=== PATIENT | female | born 1940 | race Caucasian/White ===

== ENCOUNTER 2021-07-21 11:24 | Emergency (ER) | payer MEDICARE ==
[~2021-07-21] VITALS: Ht 172.7 cm; Wt 86.4 kg
--- NOTE | 2021-07-21 11:43 | PHYS DOC ---
General Adult HPI: HPI: Patient is a 81 year old female who presents with lower scalp pain, lower neck pain, thoracic back pain after a mechanical fall, which occurred last night around 11:30 PM. She has a history of multiple falls. She normally ambulates with a walker. She reports that she got up to go to the bathroom, her was trying to help her ambulate and sit on the toilet, but she said that her knees "gave out" and she fell to the floor. Her helped her to the floor. She thinks she hit the back of her head against the toilet seat. She hit her lower neck and thoracic back on the toilet seat as well. She denies loss of consciousness. She denies any premonitory symptoms. She denies dizziness, kelby phoresis, palpitations, chest pain, dyspnea, abdominal pain, nausea or vomiting. Denies numbness tingling motor weakness. She went to urgent care this morning, they told her to come to the ER. She also reports several weeks of urinary urgency and frequency, concern for urinary tract infection. She had meant to make an appointment with her primary care physician for this, but she was unable to do so. No acute changes in urinary symptoms today. She has some mild chronic overflow incontinence, unchanged today. She denies abdominal pain, motor weakness, denies paralysis. Denies stool incontinence. Denies fevers or chills. Review of Systems: Review of Systems: Constitutional: Denies fever or chills. [] Eyes: Denies vision loss. HENT: Denies nasal congestion or sore throat. [] Respiratory: Denies cough or shortness of breath. [] Cardiovascular: Denies chest pain or edema. [] GI: Denies abdominal pain, nausea, vomiting, diarrhea, constipation. : Urinary urgency, frequency and chronic overflow incontinence. Denies gross hematuria. Musculoskeletal: Reports neck pain and upper back pain. Denies joint pain or swelling. Integument: Denies rash. [] Neurologic: Denies headache, focal weakness or sensory changes. [] Psychiatric: Denies depression or anxiety. [] Heart Score: C/O Chest Pain: No Risk Factors: Risk Factors: DM, Current or recent (<one month) smoker, HTN, HLP, family history of CAD, obesity. Risk Scores: Score 0 - 3: 2.5% MACE over next 6 weeks - Discharge Home Score 4 - 6: 20.3% MACE over next 6 weeks - Admit for Clinical Observation Score 7 - 10: 72.7% MACE over next 6 weeks - Early Invasive Strategies Physical Exam: PE: Constitutional: Well developed, well nourished, no acute distress, non-toxic appearance. [] HENT: Normocephalic, atraumatic, bilateral external ears normal, oropharynx is patent and clear. Mucous membranes are moist. No otorrhea. No rhinorrhea. No epistaxis. Eyes: PERRL, EOMI, conjunctiva normal, no discharge. [] Neck: Normal range of motion, trachea is midline. Diffuse paraspinal and midline lower C-spine tenderness. No palpable step-offs or deformity. Cardiovascular:Heart rate regular rhythm, +2 radial and PT pulses bilaterally. Lungs & Thorax: Bilateral breath sounds clear to auscultation [] Abdomen: Soft obese, nondistended, nontender to palpation. Skin: Warm, dry, no erythema, no rash. [] Back: No deformity. Diffuse midline and paraspinal tenderness of the entire T- spine. No L-spine tenderness. No palpable crepitus or step-offs. Slightly limited range of motion with flexion, secondary to pain. Extremities: No limb deformity. Pelvis is stable. No calf tenderness. Full painless range of motion of bilateral hips, knees, ankles and feet. No foot d rop. Neurologic: Alert and oriented X 3, normal motor function, normal sensory function, no focal deficits noted. 5 out of 5 motor strength all 4 extremities. No facial asymmetry. Sensation is grossly intact. DTRs 2+ out of 4 bilateral lower extremities. No foot drop. No limb ataxia. Psychologic: Affect normal, judgement normal, mood normal. [] EKG: EKG: [] Radiology/Procedures: Radiology/Procedures: IMAGING REPORT Signed PATIENT: IRENE KENNEDY ACCOUNT: [id number] : 1940 LOCATION: ER AGE: 81 SEX: F EXAM STATUS: PRE ER ORD. PHYSICIAN: COLBY WHITESIDE DO REASON: fall PROCEDURE: CT HEAD AND CERVICAL SPINE WO PQRS Compliance Statement: One or more of the following individualized dose reduction techniques were util ized for this examination: 1. Automated exposure control 2. Adjustment of the mA and/or kV according to patient size 3. Use of iterative reconstruction technique CT head and cervical spine without contrast 07/21/2021 12:[address] thoracic and lumbar spine without contrast INDICATION: Fall COMPARISON: None available TECHNIQUE: Multiple axial CT images of the head were obtained from skull base through the vertex without intravenous contrast. Multiple axial CT images of the cervical, thoracic and lumbar spine were obtained without intravenous contrast. Coronal and sagittal reformats are provided. FINDINGS: Head: Ventricles, sulci and basal cisterns are prominent compatible with mild generalized cerebral volume loss. Low-attenuation in the periventricular white matter is suggestive of chronic small vessel ischemic changes. There is a dilated perivascular space in the inferior left basal ganglia. There is no hydrocephalus. Alva-white matter differentiation is normal. There is no acute intracranial hemorrhage. There is no mass, mass effect or midline shift. Posterior fossa is normal in appearance. Visualized portions of the orbits are normal. Moderate mucosal thickening of the right maxillary sinus. Minor mucosal thickening of the left maxillary sinus with small mucus retention cyst measuring 1.0 cm.. Mastoid air cells are well aerated. Scalp and calvaria are normal. Cervical spine: Alignment of the cervical spine is normal. Skull base is intact. Craniocervical junction is normal in appearance. Atlantoaxial articulation is normal. Vertebral body heights are maintained without evidence for acute fracture. At C2-C3, there is a posterior disc osteophyte complex with calcified central disc protrusion. Moderate left and moderate facet arthropathy without significant neuroforaminal stenosis. There may be mild osseous foraminal canal stenosis. At C3-C4, there is mild disc bulge with central disc protrusion. Moderate facet arthropathy and mild uncovertebral joint disease resulting in mild bilateral neural foraminal stenosis. At C4-C5, there is a posterior disc osteophyte complex with moderate left and moderate facet arthropathy and mild uncovertebral joint disease resulting in mild left neuroforaminal stenosis and mild osseous spinal canal stenosis. At C5-C6, there is a posterior discussed by complex with moderate to severe left and moderate right facet arthropathy and moderate uncovertebral joint disease resulting in severe right and moderate left neuroforaminal stenosis and mild to moderate osseous spinal canal stenosis. At C6-C7, there is a posterior disc osteophyte complex with mild to moderate facet arthropathy and mild uncovertebral joint disease. There may be a right central disc protrusion. Moderate right and mild left neuroforaminal stenosis. Mild spin al canal stenosis. There is no prevertebral soft tissue swelling. Thyroidectomy changes are present. Visualized portions of the lung apices are normal without evidence for suspicious pulmonary nodule or infiltrate. Thoracic spine: Alignment of the thoracic spine is normal. Vertebral body heights are maintained. At T1-T2, there is a calcified central disc protrusion without signi ficant neuroforaminal or spinal canal stenosis. At T5-T6, there is a calcified central disc protrusion without significant neuroforaminal or spinal canal stenosis. Mild left facet arthropathy. At T9-T10, there is a right central disc protrusion without significant neuroforaminal or spinal canal stenosis. No acute fracture. Posterior elements are intact. No paraspinal soft tissue abnormality. Thoracic aorta is normal in course and caliber with moderate calcified atheromatous plaque. Lungs are clear. Mild bronchial wall thickening compatible with nonspecific bronchitis. Lumbar spine: S-shaped curvature of the lumbar spine with apex dextrocurvature at L1-L2 and apex levocurvature at L3-L4. Sagittal alignment appears intact. There is moderate to advanced disc height loss at L4-L5. Mild disc height loss at L2-L3 and L3-L4 with vacuum disc phenomena. Moderate to advanced anterior marginal osteophytosis. At L1-L2, there is a posterior disc osteophyte complex. Mild facet arthropathy. No neuroforaminal or spinal canal stenosis. At L2-L3, there is a posterior disc osteophyte complex. Mild facet arthropathy with mild bilateral neuroforaminal stenosis, left greater than right. Mild spinal canal stenosis. At L3-L4, there is a circumferential disc bulge. Mild facet arthro alfonso with ligamentum flavum infolding. Moderate bilateral neuroforaminal stenosis. Mild spinal canal stenosis. At L4-L5, there is a posterior disc osteophyte complex with calcified central disc protrusion. Moderate facet arthropathy ligamentum flavum infolding. Severe right and moderate left neuroforaminal stenosis. Mild to moderate spinal canal stenosis with narrowing of the left lateral recess. At L5-S1, there is a circumferential disc bulge asymmetric to the left. Moderate facet arthropathy. Moderate to severe left neuroforaminal stenosis. No spinal canal stenosis. Sacrum and coccyx are intact as visualized. Sacroiliac joints are well aligned. IMPRESSION: 1. No acute intracranial hemorrhage. Mild generalized cerebral volume loss. Low- attenuation in the periventricular white matter is suggestive of chronic small vessel ischemic changes. 2. No acute fracture of the cervical, thoracic and lumbar spine. 3. Mild cervical and thoracic and moderate lumbar spondylosis as detailed above. Electronically signed by: Raquel Garcia MD (07/21/2021 1:08 PM) [id number] DICTATED and SIGNED BY: RAQUEL GARCIA MD DATE: 07/21/21 [id number] Course & Med Decision Making: Course & Med Decision Making Pertinent Labs and Imaging studies reviewed. (See chart for details) IM morphine given for pain. First dose of p.o. Keflex given for urinary tract infection. I discussed the findings, differential diagnosis and plan of care with the patient. Imaging studies reveal no acute life-threatening process or acute fracture. She has a nonfocal neurologic exam. She feels comfortable going home. I recommend she utilize her walker for ambulation. No current indication for further imaging, invasive exams or admission at this time. She understands that urine culture is pending, and she should be notified of any need to change antibiotics based on this. Home care instructions are given. Return precautions are given. She is comfortable with the plan of care, she will follow-up with her primary care physician Luis Fernando Disclaimer: Luis Fernando Disclaimer: This electronic medical record was generated, in whole or in part, using a voice recognition dictation system. Departure Departure Impression: Primary Impression: Fall at home Additional Impressions: Neck pain Back pain Urinary tract infection Disposition: 01 HOME / SELF CARE / HOMELESS Condition: STABLE Patient Instructions: Fall Prevention and Home Safety, Urinary Tract Infection Additional Instructions: Take the full course of antibiotics. Return to the ER for new injury or trauma, more severe pain, abdominal pain, chest pain, shortness of breath, uncontrolled vomiting, dehydration, focal motor weakness or any other concerns. You may alternate ice and heat for pain. You may take the prescribed pain medicine as needed. If there is any need to change antibiotics based on your urine culture, you should be notified within about 48 hours. Please contact your primary care physician for follow-up. Scripts Cephalexin (KEFLEX) 500 Mg Capsule 1 CAP PO BID for 7 Days, #14 CAP Prov: COLBY WHITESIDE DO 07/21/21 Oxycodone/Apap 5-325 (PERCOCET 5-325 MG TABLET ) 1 Each Tablet 1 TAB PO PRN Q6HRS PRN for PAIN, #12 TAB pain Prov: COLBY WHITESIDE DO 07/21/21 COLBY WHITESIDE DO Jul 21, 2021 11:43
[2021-07-21] MEDS ORDERED: MORPHINE SULFATE 2 MG/ML INJ. IM ONE (12:00)
[2021-07-21 12:02] VITALS: BP 143/63
--- NOTE | 2021-07-21 13:10 | RAD ---
PQRS Compliance Statement: One or more of the following individualized dose reduction techniques were utilized for this examinat ion: 1. Automated exposure control 2. Adjustment of the mA and/or kV according to patient size 3. Use of iterative reconstruction technique CT head and cervical spine without contrast 07/21/2021 12:[address] thoracic and lumbar spine without contrast INDICATION: Fall COMPARISON: None available TECHNIQUE: Multiple axial CT images of the head were obtained from skull base through the vertex with out intravenous contrast. Multiple axial CT images of the cervical, thoracic and lumbar spine were o btained without intravenous contrast. Coronal and sagittal reformats are provided. FINDINGS: Head: Ventricles, sulci and basal cisterns are prominent compatible with mild generalized cerebral volume l oss. Low-attenuation in the periventricular white matter is suggestive of chronic small vessel ischem ic changes. There is a dilated perivascular space in the inferior left basal ganglia. There is no hyd rocephalus. Alva-white matter differentiation is normal. There is no acute intracranial hemorrhage. T here is no mass, mass effect or midline shift. Posterior fossa is normal in appearance. Visualized portions of the orbits are normal. Moderate mucosal thickening of the right maxillary sinu s. Minor mucosal thickening of the left maxillary sinus with small mucus retention cyst measuring 1.0 cm.. Mastoid air cells are well aerated. Scalp and calvaria are normal. Cervical spine: Alignment of the cervical spine is normal. Skull base is intact. Craniocervical junction is normal in appearance. Atlantoaxial articulation is normal. Vertebral body heights are maintained without evidence for acute fracture. At C2-C3, there is a posterior disc osteophyte complex with calcified central disc protrusion. Modera te left and moderate facet arthropathy without significant neuroforaminal stenosis. There may be mild osseous foraminal canal stenosis. At C3-C4, there is mild disc bulge with central disc protrusion. M oderate facet arthropathy and mild uncovertebral joint disease resulting in mild bilateral neural for aminal stenosis. At C4-C5, there is a posterior disc osteophyte complex with moderate left and modera te facet arthropathy and mild uncovertebral joint disease resulting in mild left neuroforaminal steno sis and mild osseous spinal canal stenosis. At C5-C6, there is a posterior discussed by complex with moderate to severe left and moderate right facet arthropathy and moderate uncovertebral joint disease resulting in severe right and moderate left neuroforaminal stenosis and mild to moderate osseous spi nal canal stenosis. At C6-C7, there is a posterior disc osteophyte complex with mild to moderate face t arthropathy and mild uncovertebral joint disease. There may be a right central disc protrusion. Mod erate right and mild left neuroforaminal stenosis. Mild spinal canal stenosis. There is no prevertebral soft tissue swelling. Thyroidectomy changes are present. Visualized portions of the lung apices are normal without evidence for suspicious pulmonary nodule or infiltrate. Thoracic spine: Alignment of the thoracic spine is normal. Vertebral body heights are maintained. At T1-T2, there is a calcified central disc protrusion without significant neuroforaminal or spinal canal stenosis. At T 5-T6, there is a calcified central disc protrusion without significant neuroforaminal or spinal canal stenosis. Mild left facet arthropathy. At T9-T10, there is a right central disc protrusion without s ignificant neuroforaminal or spinal canal stenosis. No acute fracture. Posterior elements are intact. No paraspinal soft tissue abnormality. Thoracic aorta is normal in course and caliber with moderate calcified atheromatous plaque. Lungs are clear. Mild bronchial wall thickening compatible with nonspe cific bronchitis. Lumbar spine: S-shaped curvature of the lumbar spine with apex dextrocurvature at L1-L2 and apex levocurvature at L 3-L4. Sagittal alignment appears intact. There is moderate to advanced disc height loss at L4-L5. Mil d disc height loss at L2-L3 and L3-L4 with vacuum disc phenomena. Moderate to advanced anterior mirna nal osteophytosis. At L1-L2, there is a posterior disc osteophyte complex. Mild facet arthropathy. No neuroforaminal or spinal canal stenosis. At L2-L3, there is a posterior disc osteophyte complex. Mil d facet arthropathy with mild bilateral neuroforaminal stenosis, left greater than right. Mild spinal canal stenosis. At L3-L4, there is a circumferential disc bulge. Mild facet arthropathy with ligamen james flavum infolding. Moderate bilateral neuroforaminal stenosis. Mild spinal canal stenosis. At L4-L 5, there is a posterior disc osteophyte complex with calcified central disc protrusion. Moderate face t arthropathy ligamentum flavum infolding. Severe right and moderate left neuroforaminal stenosis. Mi ld to moderate spinal canal stenosis with narrowing of the left lateral recess. At L5-S1, there is a circumferential disc bulge asymmetric to the left. Moderate facet arthropathy. Moderate to severe lef t neuroforaminal stenosis. No spinal canal stenosis. Sacrum and coccyx are intact as visualized. Sacr oiliac joints are well aligned. IMPRESSION: 1. No acute intracranial hemorrhage. Mild generalized cerebral volume loss. Low-attenuation in the pe riventricular white matter is suggestive of chronic small vessel ischemic changes. 2. No acute fracture of the cervical, thoracic and lumbar spine. 3. Mild cervical and thoracic and moderate lumbar spondylosis as detailed above. Electronically signed by: Kelsi Méndez MD (07/21/2021 1:08 PM) [id number]
[2021-07-21 14:30] LABS: BILIRUBIN,URINE NEGATIVE (NEG); CLARITY,URINE CLOUDY; COLOR,URINE YELLOW; NITRITE,URINE POSITIVE (NEG); PH,URINE 5.5 (<5.0-8.0); PROTEIN,URINE 30 mg/dL (NEG-TRACE)
[2021-07-21 14:42] LABS: BACTERIA,URINE MANY /HPF (0-FEW); WBC,URINE >40 /HPF (0-4)
[2021-07-21 14:43] LABS: RBC,URINE 0 /HPF (0-2)
[2021-07-21] MEDS ORDERED: CEPHALEXIN 250 MG CAPSULE. PO ONE (15:00)
[2021-07-21] MEDS ORDERED: CEPH500C PO (15:03)
[2021-07-21] MEDS ORDERED: OXYC1TAB15 PO (15:03)
== END 2021-07-21 15:12 | disposition home or self-care (01) ==
LOC: ER 11:24
DX: N39.0 Urinary tract infection, site not specified (principal); M54.6 Pain in thoracic spine; M54.2 Cervicalgia; G89.11 Acute pain due to trauma; W18.39XA Other fall on same level, initial encounter; Y93.89 Activity, other specified; Y99.8 Other external cause status; Y92.098 Other place in other non-institutional residence as the place of occurrence of the external cause
CPT/HCPCS: 70450; 72125; 72128; 72131; 81001; 87086; 96372; 99284; J2270

== ENCOUNTER 2021-10-27 05:02 | Inpatient (IN) | payer MEDICARE ==
[~2021-10-27] VITALS: Ht 172.7 cm; Wt 89.5 kg
[~2021-10-27 05:02] MED LIST: CEPH500C PO; OXYC1TAB15 PO
[2021-10-27 06:53] LABS: BASO % 1 % (0-3); EOS # 0.5 x10^3/uL (0.0-0.7); EOS % 5 % (0-3); HEMATOCRIT 24.5 % (36.0-47.0); HEMOGLOBIN 7.7 g/dL (12.0-15.5); LYMPH # 1.8 x10^3/uL (1.0-4.8); LYMPH % 20 % (24-48); MEAN CORPUSCULAR HEMOGLOBIN 32 pg (25-35); MEAN CORPUSCULAR HGB CONC 31 g/dL (31-37); MEAN CORPUSCULAR VOLUME 101 fL (79-100); MONO % 11 % (0-9); NEUT # 5.9 x10^3/uL (1.8-7.7); NEUT % 64 % (31-73); PLATELET COUNT 216 x10^3/uL (140-400); RED BLOOD COUNT 2.43 x10^6/uL (3.50-5.40); RED CELL DISTRIBUTION WIDTH 15.9 % (11.5-14.5); WHITE BLOOD COUNT 9.2 x10^3/uL (4.0-11.0)
[2021-10-27] MEDS ORDERED: cefTRIAXone IV Push 1 GM VIAL. IVP ONE (07:00)
[2021-10-27] MEDS ORDERED: IPRATRPIUM/ALBUTEROL 0.5/2.5MG 3 ML NEBU. NEB ONE (07:00)
[2021-10-27] MEDS ORDERED: ACETAMINOPHEN 500 MG TABLET PO ONE (07:00)
[2021-10-27] MEDS ORDERED: methylPREDNISolone SOD SUCC PF 125 MG/2 ML VIAL. IV ONE (07:00)
[2021-10-27] MEDS ORDERED: ALBUTEROL SULFATE 2.5 MG/3 ML NEBU. NEB ONE (07:00)
[2021-10-27 07:04] LABS: CALCIUM 8.2 mg/dL (8.5-10.1); POTASSIUM 3.7 mmol/L (3.5-5.1)
[2021-10-27 07:10] LABS: ALBUMIN 3.5 g/dL (3.4-5.0); ALBUMIN/GLOBULIN RATIO 1.2 (1.0-1.7); TOTAL BILIRUBIN 0.9 mg/dL (0.2-1.0); TOTAL PROTEIN 6.5 g/dL (6.4-8.2)
[2021-10-27 07:30] LABS: PROTHROMBIN TIME PATIENT 14.2 SEC (11.7-14.0)
--- NOTE | 2021-10-27 07:44 | RAD ---
AP portable chest radiograph 10/27/2021 Clinical History: Shortness of breath. An AP erect portable digital radiograph of the chest was obtained. Surgical clips overlie the inferior neck likely related to thyroidectomy. Monitoring device overlies the left mid chest. The cardiac silhouette is normal in size. The thoracic aorta is mildly tortuous. Atherosclerotic calcification of the thoracic aorta is seen. No acute pulmonary infiltrate is seen. N o pleural effusion or pneumothorax is noted. Degenerative changes are seen involving the thoracic spi ne. IMPRESSION: No acute abnormality is seen. Electronically signed by: Rogelio Hickman MD (10/27/2021 7:42 AM) [id number]
[2021-10-27 07:48] LABS: BASE EXCESS ABG -1 mmol/L (-3-3); HCO3 ABG 23 mmol/L (21-28); PCO2 ABG 37 mmHg (35-46); PO2 ABG 69 mmHg (65-108); SAT O2 ABG 92 % (92-99)
[2021-10-27 07:50] LABS: FIO2 ABG 21
[2021-10-27 08:00] LABS: INFLUENZA A PATIENT NEGATIVE (NEGATIVE); INFLUENZA B PATIENT NEGATIVE (NEGATIVE)
--- NOTE | 2021-10-27 09:57 | PHYS DOC ---
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 She presents for evaluation of several days of nasal congestion, rhinorrhea, dry cough and progressive shortness of breath. Associated nausea with occasional nonbloody vomiting. Associated occasional mild watery diarrhea. Patient is saturating at 86% on room air and is diffusely wheezing. She is able to speak comfortably in full sentences in a normal tone of voice. She denies associated fevers, hematemesis, hematochezia or melena, chest pain aside from with coughing, abdominal pain of any kind, flank pain, midline back pain, dysuria, hematuria, polyuria or oliguria. Patient is alert and pleasantly and appropriately interactive and in no acute distress with appropriate vital signs aside from hypoxia as noted above. Review of Systems Review of Systems A 12 point review of systems was completed and was negative except where noted in HPI above. Current Medications Current Medications Current Medications Medications (Trade) Dose Ordered Sig/Roscoe Start Time Stop Time Status Last Admin Dose Admin Acetaminophen (Tylenol) 1,000 mg 1X ONCE 10/27/21 07:00 10/27/21 07:01 DC 10/27/21 07:46 1,000 MG Albuterol Sulfate (Ventolin Neb Soln) 2.5 mg 1X ONCE 10/27/21 07:00 10/27/21 07:01 DC 10/27/21 07:40 2.5 MG Albuterol/ Ipratropium (Duoneb) 3 ml 1X ONCE 10/27/21 07:00 10/27/21 07:01 DC 10/27/21 07:40 3 ML Ceftriaxone Sodium (Rocephin) 1 gm 1X ONCE 10/27/21 07:00 10/27/21 07:01 DC 10/27/21 07:35 1 GM Methylprednisolone Sodium Succinate (SOLU-Medrol 125MG VIAL) 125 mg 1X ONCE 10/27/21 07:00 10/27/21 07:01 DC 10/27/21 07:33 125 MG Allergies Allergies Allergies Coded Allergies Type Severity Reaction Last Updated Verified Penicillins Allergy Intermediate Rash 07/21/21 Yes codeine Adverse Reaction Mild Nausea 10/27/21 Yes Physical Exam Physical Exam Elderly female appearing nontoxic and in no acute distress. Head is normocephalic and atraumatic. Neck is supple and nontender. Oropharynx is moist. Lungs with diminished breath sounds to all [place] and wheezes heard globally. No crackles or other adventitious sounds. There is a normal S1 and S2 without rubs or gallops and capillary refill is appropriate, less than 2 seconds globally. Abdomen is soft, nontender and nondistended. Skin is warm and dry without cyanosis, clubbing or edema. Psychiatrically, the patient demonstrates appropriate mood and affect and is alert. Evaluation of the extremities reveals BUEs and BLEs neurovascular intact distally with strength 5 out of 5, sensation intact light touch in all nerve distributions, radial, DP and PT pulses 2+ and equal bilaterally, capillary refill less than 2 seconds, hands and feet warm and well-perfused. No dependent peripheral edema distally. No calf tenderness or swelling bilaterally. Homans test is negative bilaterally. Current Patient Data Vital Signs Vital Signs Date Time Temp Pulse Resp B/P (MAP) Pulse Ox O2 Delivery O2 Flow Rate FiO2 10/27/21 09:10 98.3 102 19 145/63 (90) 94 Nasal Cannula 2.0 98.3 Lab Values Laboratory Tests Test 10/27/21 06:30 10/27/21 07:30 White Blood Count 9.2 x10^3/uL (4.0-11.0) Red Blood Count 2.43 x10^6/uL (3.50-5.40) L Hemoglobin 7.7 g/dL (12.0-15.5) L Hematocrit 24.5 % (36.0-47.0) L Mean Corpuscular Volume 101 fL (79-100) H Mean Corpuscular Hemoglobin 32 pg (25-35) Mean Corpuscular Hemoglobin Concent 31 g/dL (31-37) Red Cell Distribution Width 15.9 % (11.5-14.5) H Platelet Count 216 x10^3/uL (140-400) Neutrophils (%) (Auto) 64 % (31-73) Lymphocytes (%) (Auto) 20 % (24-48) L Monocytes (%) (Auto) 11 % (0-9) H Eosinophils (%) (Auto) 5 % (0-3) H Basophils (%) (Auto) 1 % (0-3) Neutrophils # (Auto) 5.9 x10^3/uL (1.8-7.7) Lymphocytes # (Auto) 1.8 x10^3/uL (1.0-4.8) Monocytes # (Auto) 1.0 x10^3/uL (0.0-1.1) Eosinophils # (Auto) 0.5 x10^3/uL (0.0-0.7) Basophils # (Auto) 0.0 x10^3/uL (0.0-0.2) Prothrombin Time 14.2 SEC (11.7-14.0) H Prothrombin Time INR 1.1 (0.8-1.1) Activated Partial Thromboplast Time 27 SEC (24-38) Sodium Level 144 mmol/L (136-145) Potassium Level 3.7 mmol/L (3.5-5.1) Chloride Level 104 mmol/L (98-107) Carbon Dioxide Level 28 mmol/L (21-32) Anion Gap 12 (6-14) Blood Urea Nitrogen 21 mg/dL (7-20) H Creatinine 2.0 mg/dL (0.6-1.0) H Estimated GFR (Cockcroft-Gault) 24.0 BUN/Creatinine Ratio 11 (6-20) Glucose Level 131 mg/dL (70-99) H Lactic Acid Level 1.7 mmol/L (0.4-2.0) Calcium Level 8.2 mg/dL (8.5-10.1) L Total Bilirubin 0.9 mg/dL (0.2-1.0) Aspartate Amino Transferase (AST) 8 U/L (15-37) L Alanine Aminotransferase (ALT) 17 U/L (14-59) Alkaline Phosphatase 43 U/L (46-116) L Troponin I High Sensitivity 171 ng/L (4-50) H YZ-Iqb-L-Type Natriuretic Peptide 575 pg/mL (0-449) H Total Protein 6.5 g/dL (6.4-8.2) Albumin 3.5 g/dL (3.4-5.0) Albumin/Globulin Ratio 1.2 (1.0-1.7) Procalcitonin 0.13 ng/mL (0.00-0.10) H O2 Saturation 92 % (92-99) Arterial Blood pH 7.41 (7.35-7.45) Arterial Blood pCO2 at Patient Temp 37 mmHg (35-46) Arterial Blood pO2 at Patient Temp 69 mmHg (65-108) Arterial Blood HCO3 23 mmol/L (21-28) Arterial Blood Base Excess -1 mmol/L (-3-3) FiO2 21 Influenza Type A Antigen Negative (NEGATIVE) Influenza Type B Antigen Negative (NEGATIVE) SARS-CoV-2 Antigen (Rapid) Negative (NEGATIVE) Laboratory Tests 10/27/21 06:30 Laboratory Tests 10/27/21 06:30 EKG EKG Sinus rhythm, rate 97, no acute ST elevation or depression, VT 146, QRS 102, QTc 487, EP interpretation. Nonischemic tracing, intervals appropriate. Radiology/Procedures Radiology/Procedures AP portable chest radiograph 10/27/2021 Clinical History: Shortness of breath. An AP erect portable digital radiograph of the chest was obtained. Surgical clips overlie the inferior neck likely related to thyroidectomy. Monitoring device overlies the left mid chest. The cardiac silhouette is normal in size. The thoracic aorta is mildly tortuous. Atherosclerotic calcification of the thoracic aorta is seen. No acute pulmonary infiltrate is seen. No pleural effusion or pneumothorax is noted. Degenerative changes are seen involving the thoracic spine. IMPRESSION: No acute abnormality is seen. Electronically signed by: Rogelio Hickman MD (10/27/2021 7:42 AM) [id number] DICTATED and SIGNED BY: ROGELIO HICKMAN MD DATE: 10/27/21 [id number] Course & Med Decision Making Course & Med Decision Making Labs and imaging as above. Patient still requiring 3 L by nasal cannula to allison ntain saturation, still diffusely wheezy. Will benefit from further inpatient care for COPD exacerbation. Will bring in under Dr. Oswald, who graciously accepts. Critical care time was 38 minutes for acute hypoxemic respiratory failure. Dragon Disclaimer Dragon Disclaimer This electronic medical record was generated, in whole or in part, using a voice recognition dictation system. Departure Departure Impression: Primary Impression: COPD with exacerbation Additional Impressions: Acute hypoxemic respiratory failure Demand ischemia Renal insufficiency Anemia Disposition: ADMITTED INPATIENT Condition: GUARDED Referrals: SMOOTH FIERRO MD (PCP) Problem Qualifiers VAISHALI,ROGELIO MD Oct 27, 2021 09:57
[2021-10-27] MEDS ORDERED: ACETAMINOPHEN 325 MG TABLET. PO PRN (10:00)
[2021-10-27] MEDS ORDERED: ONDANSETRON PF 4 MG/2 ML VIAL. IVP PRN (10:00)
[2021-10-27] MEDS ORDERED: ASPIRIN 325 MG TABLET PO ONE (10:15)
[2021-10-27] MEDS ORDERED: IV NORMAL SALINE 500ML BAG 500 ML IV ONE (10:15)
[2021-10-27] MEDS ORDERED: AZITHROMYCIN 500 MG in IV NORMAL SALINE 250ML 250 ML IV ONE (11:00)
--- NOTE | 2021-10-27 11:26 | EKG ---
[facility] [address] [place] [address] Test Date: 2021-10-27 Test Time: 05:33:25 Pat Name: IRENE KENNEDY Department: Room: Gender: F Washer Hand: : 1940 Requested By: BEVERLY TOM Order Number: [id number] Reading MD: Measurements Intervals Lilly Rate: 97 P: 65 HI: 146 QRS: -43 QRSD: 102 T: 66 QT: 380 QTc: 487 Interpretive Statements SINUS RHYTHM ABNORMAL LEFT AXIS DEVIATION LEFT ANTERIOR FASCICULAR BLOCK QRS(T) CONTOUR ABNORMALITY CONSIDER ANTEROSEPTAL MYOCARDIAL DAMAGE T ABNORMALITY IN HIGH LATERAL LEADS PROLONGED QT ABNORMAL ECG RI6.02 No previous ECG available for comparison
--- NOTE | 2021-10-27 11:57 | HP ---
DATE OF SERVICE: 10/27/2021 ADMIT DATE: 10/27/2021 CHIEF COMPLAINT: Shortness of breath. HISTORY OF PRESENT ILLNESS: The patient is a pleasant 81-year-old female with known COPD. She presents to the ER today with shortness of breath. I discussed the case with ER physician. It seems that the patient is having a COPD exacerbation. We are going to admit the patient and gave her COPD protocol. PAST MEDICAL HISTORY: COPD, macular degeneration, hypotension, leukemia, renal failure, hysterectomy, tubal ligation, loop recorder, lumpectomy. ALLERGIES: PENICILLIN AND CODEINE. FAMILY HISTORY: Diabetes. SOCIAL HISTORY: She does not drink, smoke or take drugs. MEDICATIONS: Reviewed, please refer to the MRAD. REVIEW OF SYSTEMS: GENERAL: No history of weight change, weakness or fevers. SKIN: No bruising, hair changes or rashes. EYES: No blurred, double or loss of vision. NOSE AND THROAT: No history of nosebleeds, hoarseness or sore throat. HEART: No history of palpitations, chest pain or shortness of breath on exertion. LUNGS: She complains of shortness of breath. GASTROINTESTINAL: Denies changes in appetite, nausea, vomiting, diarrhea or constipation. GENITOURINARY: No history of frequency, urgency, hesitancy or nocturia. NEUROLOGIC: Denies history of numbness, tingling, tremor or weakness. PSYCHIATRIC: No history of panic, anxiety or depression. ENDOCRINE: No history of heat or cold intolerance, polyuria or polydipsia. EXTREMITIES: Denies muscle weakness, joint pain, pain on walking or stiffness. PHYSICAL EXAMINATION: VITALS: Within normal limits and are stable. GENERAL: No apparent distress. Alert and oriented. HEENT: Normal cephalic atraumatic, external auditory canals are patent EYES: Extraocular muscles are intact, pupils are equally round and reactive to light and accommodation MUSCULOSKELETAL: Well developed, well nourished, good range of motion. ENDOCRINE: No thyromegaly was palpated. LYMPHATICS: No cervical chain or axillary nodes were noted. HEMATOPOIETIC: No bruising. NECK: Supple, no JVD, no thyromegaly was noted. LUNGS: She has diminished breath sounds. HEART: RRR, S1, S2 present. Peripheral pulses intact, no obvious murmurs were noted. ABDOMEN: Soft, nontender. Positive bowel sounds no organomegaly, normal bowel sounds. EXTREMITIES: Without any cyanosis, clubbing, or edema. Pedal pulses intact, Homans sign is negative. NEUROLOGIC: Normal speech, normal tone. A and O x 3, moves all extremities, no obvious focal deficits. PSYCHIATRIC: Normal affect, normal mood. Stable. SKIN: No ulcerations or rashes, good skin turgor, no jaundice. VASCULAR: Good capillary refill, neurovascular bundle appears to be intact. LABORATORY DATA: White count is 9. BUN is high at 21, creatinine 2. INR is 1.1. COVID testing is negative. ABG shows a pH of 7.41, pCO2 of 37, pO2 of 69, bicarbonate 23 with 92% sat on room air. Chest x-ray shows no acute process. ASSESSMENT AND PLAN: Respiratory failure with hypoxia and chronic obstructive pulmonary disease exacerbation. The patient will be admitted. We will start IV steroids, breathing treatments, oxygen, home meds, deep venous thrombosis prophylaxis. Full code. STACIA/FAUSTO DR: Loy TID: [id number]
[2021-10-27] MEDS: IPRATRPIUM/ALBUTEROL 0.5/2.5MG 3 ML NEBU. NEB SCH ×2 (12:30→21:01)
[2021-10-27] MEDS ORDERED: MORPHINE SULFATE 2 MG/ML INJ. IVP PRN (13:30)
[2021-10-27] MEDS ORDERED: MORPHINE SULFATE 2 MG/ML INJ. ONE (13:37)
[2021-10-27 15:00] VITALS: BP 153/63
[2021-10-27] MEDS ORDERED: CALC0.25 PO (16:19)
[2021-10-27] MEDS ORDERED: LEVO125T5 PO (16:19)
[2021-10-27] MEDS ORDERED: ATOR40TA PO (16:19)
[2021-10-27] MEDS ORDERED: HUM100VI SQ (16:19)
[2021-10-27] MEDS ORDERED: LEXAPRO20 MG PO (16:19)
[2021-10-27] MEDS ORDERED: TRAZ-123 PO (16:19)
[2021-10-27] MEDS ORDERED: GABA300C18 PO (16:19)
[2021-10-27] MEDS ORDERED: FLUD0.1T PO (16:19)
[2021-10-27] MEDS ORDERED: FENO145T3 PO (16:19)
[2021-10-27] MEDS ORDERED: DEXTROSE 50% 25 GM / 50ML DISP.SYRIN. IV PRN (18:15)
[2021-10-27] MEDS ORDERED: oxyCODONE/APAP 5/325 1 TAB TABLET PO PRN (18:15)
[2021-10-27] MEDS ORDERED: IV DEXTROSE 5% 250 ML BAG. IV PRN (18:15)
[2021-10-27] MEDS: INSULIN LISPRO 300 UNITS/3 ML VIAL. SQ SCH (18:58)
[2021-10-27 19:51] VITALS: BP 146/65
[2021-10-27] MEDS: methylPREDNISolone SOD SUCC PF 40 MG/ML VIAL. IV SCH (20:34)
[2021-10-27] MEDS: traZODone 100 MG TABLET. PO SCH (20:34)
[2021-10-27] MEDS: GABAPENTIN 300 MG CAPSULE. PO SCH (20:34)
[2021-10-27] MEDS ORDERED: NON FORMULARY ITEM (Cephalexin (Keflex) 1 CAP) PO SCH (21:00)
[2021-10-27 23:16] VITALS: BP 131/50
[2021-10-28] MEDS ORDERED: ONDANSETRON PF 4 MG/2 ML VIAL. IVP PRN
[2021-10-28] MEDS ORDERED: ACETAMINOPHEN 325 MG TABLET. PO PRN
[2021-10-28 03:03] VITALS: BP 119/41
[2021-10-28 03:43] LABS: BASO % 0 % (0-3); EOS % 0 % (0-3); LYMPH # 0.5 x10^3/uL (1.0-4.8); LYMPH % 4 % (24-48); MEAN CORPUSCULAR HEMOGLOBIN 32 pg (25-35); MEAN CORPUSCULAR HGB CONC 31 g/dL (31-37); MEAN CORPUSCULAR VOLUME 104 fL (79-100); MONO # 0.3 x10^3/uL (0.0-1.1); MONO % 2 % (0-9); NEUT % 94 % (31-73); PLATELET COUNT 227 x10^3/uL (140-400); RED BLOOD COUNT 2.51 x10^6/uL (3.50-5.40); RED CELL DISTRIBUTION WIDTH 16.5 % (11.5-14.5); WHITE BLOOD COUNT 13.9 x10^3/uL (4.0-11.0)
[2021-10-28 04:02] LABS: ALBUMIN 3.6 g/dL (3.4-5.0); CALCIUM 7.8 mg/dL (8.5-10.1); CREATININE 2.2 mg/dL (0.6-1.0); GFR 21.5; POTASSIUM 3.9 mmol/L (3.5-5.1); TOTAL BILIRUBIN 0.4 mg/dL (0.2-1.0); TOTAL PROTEIN 7.3 g/dL (6.4-8.2)
[2021-10-28 04:46] LABS: % BANDS 5 % (0-9); % LYMPHS 4 % (24-48); % SEGS 91 % (35-66); ANISOCYTOSIS SLIGHT; NUCLEATED RBC 1; PLT ESTIMATE ADEQUATE (ADEQUATE); POLYCHROMASIA SLIGHT
[2021-10-28] MEDS: LEVOTHYROXINE 125 MCG TABLET PO SCH (05:35)
[2021-10-28 07:00] VITALS: BP 93/51
[2021-10-28] MEDS: IPRATRPIUM/ALBUTEROL 0.5/2.5MG 3 ML NEBU. NEB SCH ×4 (07:53→20:57)
[2021-10-28] MEDS: methylPREDNISolone SOD SUCC PF 40 MG/ML VIAL. IV SCH ×2 (08:24→20:32)
[2021-10-28] MEDS: CITALOPRAM 20 MG TABLET. PO SCH (08:25)
[2021-10-28] MEDS: FENOFIBRATE,MICRONIZED 134 MG CAPSULE PO SCH (08:26)
[2021-10-28] MEDS: CALCITRIOL 0.25 MCG CAPSULE. PO SCH (08:26)
[2021-10-28] MEDS: FLUDROCORTISONE 0.1 MG TABLET PO SCH (08:26)
[2021-10-28] MEDS: INSULIN LISPRO 300 UNITS/3 ML VIAL. SQ SCH ×5 (08:50→17:50)
[2021-10-28 08:59] LABS: CHOLESTEROL/HDL RATIO 2.6
[2021-10-28] MEDS: ATORVASTATIN CALCIUM 40 MG TABLET. PO SCH ×2 (09:00→20:32)
[2021-10-28] MEDS ORDERED: INSULIN NPH/REG HUM 70/30 300 UNITS/3 ML VIAL. SQ SCH (09:00)
--- NOTE | 2021-10-28 10:45 | EKG ---
[facility] [address] [place] [address] Test Date: 2021-10-27 Test Time: 13:04:35 Pat Name: IRENE KENNEDY Department: Room: ED HOLD 22 Gender: F Rn Long Term Care: : 1940 Requested By: JD NUNEZ Order Number: [id number] Reading MD: Measurements Intervals Abbot Rate: 112 P: 89 [place]: 136 QRS: -44 QRSD: 106 T: 71 QT: 366 QTc: 501 Interpretive Statements SINUS TACHYCARDIA ABNORMAL LEFT AXIS DEVIATION LEFT ANTERIOR FASCICULAR BLOCK LVH WITH REPOLARIZATION ABNORMALITY QRS(T) CONTOUR ABNORMALITY CONSIDER ANTEROSEPTAL MYOCARDIAL DAMAGE ABNORMAL ECG RI6.02 No previous ECG available for comparison
[2021-10-28 11:00] VITALS: BP 121/33
[2021-10-28] MEDS ORDERED: IV DEXTROSE 5% 250 ML BAG. IV PRN (12:00)
[2021-10-28] MEDS ORDERED: guaiFENesin DM 200MG/20MG 10 ML SYRUP PO PRN (12:00)
[2021-10-28] MEDS ORDERED: AZITHROMYCIN 250 MG TABLET. PO ONE (12:00)
[2021-10-28] MEDS ORDERED: DEXTROSE 50% 25 GM / 50ML DISP.SYRIN. IV PRN (12:00)
--- NOTE | 2021-10-28 12:00 | PDOC ---
[employer] PROGRESS NOTE Date of Service DOS: DATE: 10/28/21 TIME: 11:56 Chief Complaint Chief Complaint Acute respiratory failure with hypoxia Acute COPD exacerbation DM2 with hyperglycemia History of leukemia History of Present Illness History of Present Illness The patient is a pleasant 81-year-old female with known COPD. She presents to the ER today with shortness of breath. I discussed the case with ER physician. It seems that the patient is having a COPD exacerbation. We are going to admit the patient and gave her COPD protocol. 10/28/2021: Patient seen and evaluated bedside. Still breathing on 3 L nasal cannula. She reports cough without significant sputum production. States her last COPD exacerbation was 4-5 years ago. She normally feels better after Z-Jaydon. Just prior to my evaluation she finished breathing treatment with expiratory therapist. Will add azithromycin and guaifenesin. If no significant improvement in breathing will consult pulmonology. Of note, she has history of leukemia and states hemoglobin is chronically low. We will continue to monitor. Will adjust insulin regimen. Vitals/I&O Vitals/I&O: Vital Signs Date Time Temp Pulse Resp B/P (MAP) Pulse Ox O2 Delivery O2 Flow Rate FiO2 10/28/21 11:30 Nasal Cannula 3.0 10/28/21 11:00 97.5 98 20 121/33 (62) 99 97.5 I & O 10/27/21 10/27/21 10/28/21 15:00 23:00 07:00 Intake Total 750 ml 500 ml Output Total 1 ml Balance 750 ml -1 ml 500 ml Physical Exam General: Alert, Oriented X3, Cooperative Heart: Regular rate Lungs: Wheezing Abdomen: Soft Extremities: No clubbing Skin: No rashes Labs Labs: Laboratory Tests Test 10/27/21 14:18 10/27/21 17:22 10/27/21 18:00 10/27/21 20:38 Troponin I High Sensitivity 165 ng/L (4-50) 920 ng/L (4-50) Glucose (Fingerstick) 387 mg/dL (70-99) 348 mg/dL (70-99) Test 10/28/21 02:30 10/28/21 07:51 10/28/21 09:11 10/28/21 10:18 White Blood Count 13.9 x10^3/uL (4.0-11.0) Red Blood Count 2.51 x10^6/uL (3.50-5.40) Hemoglobin 8.0 g/dL (12.0-15.5) Hematocrit 26.0 % (36.0-47.0) Mean Corpuscular Volume 104 fL (79-100) Mean Corpuscular Hemoglobin 32 pg (25-35) Mean Corpuscular Hemoglobin Concent 31 g/dL (31-37) Red Cell Distribution Width 16.5 % (11.5-14.5) Platelet Count 227 x10^3/uL (140-400) Neutrophils (%) (Auto) 94 % (31-73) Lymphocytes (%) (Auto) 4 % (24-48) Monocytes (%) (Auto) 2 % (0-9) Eosinophils (%) (Auto) 0 % (0-3) Basophils (%) (Auto) 0 % (0-3) Neutrophils # (Auto) 13.0 x10^3/uL (1.8-7.7) Lymphocytes # (Auto) 0.5 x10^3/uL (1.0-4.8) Monocytes # (Auto) 0.3 x10^3/uL (0.0-1.1) Eosinophils # (Auto) 0.0 x10^3/uL (0.0-0.7) Basophils # (Auto) 0.0 x10^3/uL (0.0-0.2) Segmented Neutrophils % 91 % (35-66) Band Neutrophils % 5 % (0-9) Lymphocytes % 4 % (24-48) Nucleated Red Blood Cells 1 Platelet Estimate Adequate (ADEQUATE) Polychromasia Slight Anisocytosis Slight Sodium Level 139 mmol/L (136-145) Potassium Level 3.9 mmol/L (3.5-5.1) Chloride Level 99 mmol/L (98-107) Carbon Dioxide Level 26 mmol/L (21-32) Anion Gap 14 (6-14) Blood Urea Nitrogen 28 mg/dL (7-20) Creatinine 2.2 mg/dL (0.6-1.0) Estimated GFR (Cockcroft-Gault) 21.5 BUN/Creatinine Ratio 13 (6-20) Glucose Level 358 mg/dL (70-99) Calcium Level 7.8 mg/dL (8.5-10.1) Total Bilirubin 0.4 mg/dL (0.2-1.0) Aspartate Amino Transf (AST/SGOT) 20 U/L (15-37) Alanine Aminotransferase (ALT/SGPT) 16 U/L (14-59) Alkaline Phosphatase 49 U/L (46-116) Total Protein 7.3 g/dL (6.4-8.2) Albumin 3.6 g/dL (3.4-5.0) Albumin/Globulin Ratio 1.0 (1.0-1.7) Triglycerides Level 147 mg/dL (0-150) Cholesterol Level 112 mg/dL (0-200) LDL Cholesterol, Calculated 40 mg/dL (0-100) VLDL Cholesterol, Calculated 29 mg/dL (0-40) Non-HDL Cholesterol Calculated 69 mg/dL (0-129) HDL Cholesterol 43 mg/dL (40-60) Cholesterol/HDL Ratio 2.6 Thyroid Stimulating Hormone (TSH) 1.667 uIU/mL (0.358-3.74) Glucose (Fingerstick) 329 mg/dL (70-99) 392 mg/dL (70-99) 286 mg/dL (70-99) Test 10/28/21 11:09 Glucose (Fingerstick) 203 mg/dL (70-99) Assessment and Plan Assessmemt and Plan Problems Medical Problems: (1) Acute hypoxemic respiratory failure Status: Acute (2) Anemia Status: Acute (3) COPD with exacerbation Status: Acute (4) Demand ischemia Status: Acute (5) Renal insufficiency Status: Acute Comment Review of Relevant I have reviewed the following items carlos alberto (where applicable) has been applied. Medications: Current Medications Medications (Trade) Dose Ordered Sig/Roscoe Route PRN Reason Start Time Stop Time Status Last Admin Dose Admin Methylprednisolone Sodium Succinate (SOLU-Medrol 40MG VIAL) 40 mg BID IV 10/27/21 21:00 10/28/21 08:24 Albuterol/ Ipratropium (Duoneb) 3 ml RTQID NEB 10/27/21 12:00 10/28/21 11:29 Morphine Sulfate (Morphine Sulfate) 2 mg PRN Q2HR PRN IVP PAIN 10/27/21 13:30 10/27/21 13:39 Calcitriol (Rocaltrol) 0.25 mcg DAILY PO 10/28/21 09:00 10/28/21 08:26 Fludrocortisone Acetate (Florinef) 0.1 mg DAILY PO 10/28/21 09:00 10/28/21 08:26 Gabapentin (Neurontin) 300 mg HS PO 10/27/21 21:00 10/27/21 20:34 Levothyroxine Sodium (Synthroid) 125 mcg DAILY06 PO 10/28/21 06:00 10/28/21 05:35 Trazodone HCl (Desyrel) 100 mg QHS PO 10/27/21 21:00 10/27/21 20:34 Citalopram Hydrobromide (CeleXA) 40 mg DAILY PO 10/28/21 09:00 10/28/21 08:25 Fenofibrate (Lofibra) 134 mg DAILY PO 10/28/21 09:00 10/28/21 08:26 Insulin Human Lispro (HumaLOG) 0-7 UNITS TIDWMEALS SQ 10/27/21 18:15 10/28/21 08:50 Justifications for Admission Other Justification ROMMEL MEMBRENO MD Oct 28, 2021 12:00
--- NOTE | 2021-10-28 12:31 | PDOC2 ---
CARDIAC CONSULT DATE OF CONSULT Date of Consult DATE: 10/28/21 TIME: 12:31 REASON FOR CONSULT Reason for Consult: CP. EKG changes REFERRING PHYSICIAN Referring Physician: Darek SOURCE Source: Chart review, Patient HISTORY OF PRESENT ILLNESS HISTORY OF PRESENT ILLNESS This is a pleasant 81 yo female admitted for complains of URI symptoms, cough and chest pain. Reports of nasal congestion, coughing but no fever or chills. She is vaccinated for covid-19. Also has been having wheezing lately. Reports of mid chest tightness and also with nausea or vomiting in the last 2 days which occurred initially after coughing spells. Reports of watery stools as well in the last 2 days. She has hx of mild CAD with LHC done in [place] in 2016 due to NSTEMI. No hx of CHF nor VTE but significnat for renal disease and COPD. Denies any hx of AFIB and unclear about any arrhythmia and has ILR which has been placed over 4 yrs ago at least. Denies any frequent dizziness, or syncope and no palpitations. PAST MEDICAL HISTORY Cardiovascular: CAD (mild nonobstructive with LHC in 11/2014), HTN, Hyperl ipidemia, Other (orthostasis, NSTEMI) Pulmonary: COPD, Other ([facility] refused CPAP in the past) GI: Other (gastric AVMs with cautery in 02/2016) Heme/Onc: Anemia NOS, Other (myelodysplasia) Musculoskeletal: Osteoarthritis Rheumatologic: Other (hyperuricemia) ENT: Other (macular degeneration) Renal/: Chronic renal insuff (CKD4) Endocrine: Diabetes (2), Hypothyroidism PAST SURGICAL HISTORY Past Surgical History: Appendectomy, Tubal Ligation, Hysterectomy, Other (ILR) FAMILY HISTORY Family History: Family History Unknown SOCIAL HISTORY Smoke: Quit ALCOHOL: none Drugs: None Lives: with Family CURRENT MEDICATIONS CURRENT MEDICATIONS Current Medications Medications (Trade) Dose Ordered Sig/Roscoe Route PRN Reason Start Time Stop Time Status Last Admin Dose Admin Methylprednisolone Sodium Succinate (SOLU-Medrol 40MG VIAL) 40 mg BID IV 10/27/21 21:00 10/28/21 08:24 Morphine Sulfate (Morphine Sulfate) 2 mg PRN Q2HR PRN IVP PAIN 10/27/21 13:30 10/27/21 13:39 Calcitriol (Rocaltrol) 0.25 mcg DAILY PO 10/28/21 09:00 10/28/21 08:26 Fludrocortisone Acetate (Florinef) 0.1 mg DAILY PO 10/28/21 09:00 10/28/21 08:26 Gabapentin (Neurontin) 300 mg HS PO 10/27/21 21:00 10/27/21 20:34 Levothyroxine Sodium (Synthroid) 125 mcg DAILY06 PO 10/28/21 06:00 10/28/21 05:35 Trazodone HCl (Desyrel) 100 mg QHS PO 10/27/21 21:00 10/27/21 20:34 Citalopram Hydrobromide (CeleXA) 40 mg DAILY PO 10/28/21 09:00 10/28/21 08:25 Fenofibrate (Lofibra) 134 mg DAILY PO 10/28/21 09:00 10/28/21 08:26 Insulin Human Lispro (HumaLOG) 0-7 UNITS TIDWMEALS SQ 10/27/21 18:15 10/28/21 08:50 ALLERGIES ALLERGIES: Coded Allergies: Penicillins (Verified Allergy, Intermediate, Rash, 07/21/21) codeine (Verified Adverse Reaction, Mild, Nausea, 10/27/21) ROS Review of System 14 point ROS evaluated with pertinent positives noted per HPI PHYSICAL EXAM General: Alert, Oriented X3, Cooperative, No acute distress HEENT: Atraumatic, Mucous membr. moist/pink Lungs: Other (diminished) Heart: Regular rate (SR), Normal S1, Normal S2 Abdomen: Soft, No tenderness Extremities: No cyanosis, No edema Skin: No breakdown Neuro: Normal speech, Sensation intact Psych/Mental Status: Mental status NL, Mood NL MUSCULOSKELETAL: Osteoarthritic changes both hands VITALS/I&O VITALS/I&O: Vital Signs Date Time Temp Pulse Resp B/P (MAP) Pulse Ox O2 Delivery O2 Flow Rate FiO2 10/28/21 11:30 Nasal Cannula 3.0 10/28/21 11:00 97.5 98 20 121/33 (62) 99 97.5 I & O 10/27/21 10/27/21 10/28/21 15:00 23:00 07:00 Intake Total 750 ml 500 ml Output Total 1 ml Balance 750 ml -1 ml 500 ml LABS Lab: Laboratory Tests Test 10/27/21 14:18 10/27/21 17:22 10/27/21 18:00 10/27/21 20:38 Troponin I High Sensitivity 165 ng/L (4-50) H 920 ng/L (4-50) H Glucose (Fingerstick) 387 mg/dL (70-99) H 348 mg/dL (70-99) H Test 10/28/21 02:30 10/28/21 07:51 10/28/21 09:11 10/28/21 10:18 White Blood Count 13.9 x10^3/uL (4.0-11.0) H Red Blood Count 2.51 x10^6/uL (3.50-5.40) L Hemoglobin 8.0 g/dL (12.0-15.5) L Hematocrit 26.0 % (36.0-47.0) L Mean Corpuscular Volume 104 fL (79-100) H Mean Corpuscular Hemoglobin 32 pg (25-35) Mean Corpuscular Hemoglobin Concent 31 g/dL (31-37) Red Cell Distribution Width 16.5 % (11.5-14.5) H Platelet Count 227 x10^3/uL (140-400) Neutrophils (%) (Auto) 94 % (31-73) H Lymphocytes (%) (Auto) 4 % (24-48) L Monocytes (%) (Auto) 2 % (0-9) Eosinophils (%) (Auto) 0 % (0-3) Basophils (%) (Auto) 0 % (0-3) Neutrophils # (Auto) 13.0 x10^3/uL (1.8-7.7) H Lymphocytes # (Auto) 0.5 x10^3/uL (1.0-4.8) L Monocytes # (Auto) 0.3 x10^3/uL (0.0-1.1) Eosinophils # (Auto) 0.0 x10^3/uL (0.0-0.7) Basophils # (Auto) 0.0 x10^3/uL (0.0-0.2) Segmented Neutrophils % 91 % (35-66) H Band Neutrophils % 5 % (0-9) Lymphocytes % 4 % (24-48) L Nucleated Red Blood Cells 1 Platelet Estimate Adequate (ADEQUATE) Polychromasia Slight Anisocytosis Slight Sodium Level 139 mmol/L (136-145) Potassium Level 3.9 mmol/L (3.5-5.1) Chloride Level 99 mmol/L (98-107) Carbon Dioxide Level 26 mmol/L (21-32) Anion Gap 14 (6-14) Blood Urea Nitrogen 28 mg/dL (7-20) H Creatinine 2.2 mg/dL (0.6-1.0) H Estimated GFR (Cockcroft-Gault) 21.5 BUN/Creatinine Ratio 13 (6-20) Glucose Level 358 mg/dL (70-99) H Calcium Level 7.8 mg/dL (8.5-10.1) L Total Bilirubin 0.4 mg/dL (0.2-1.0) Aspartate Amino Transferase (AST) 20 U/L (15-37) Alanine Aminotransferase (ALT) 16 U/L (14-59) Alkaline Phosphatase 49 U/L (46-116) Total Protein 7.3 g/dL (6.4-8.2) Albumin 3.6 g/dL (3.4-5.0) Albumin/Globulin Ratio 1.0 (1.0-1.7) Triglycerides Level 147 mg/dL (0-150) Cholesterol Level 112 mg/dL (0-200) LDL Cholesterol, Calculated 40 mg/dL (0-100) VLDL Cholesterol, Calculated 29 mg/dL (0-40) Non-HDL Cholesterol Calculated 69 mg/dL (0-129) HDL Cholesterol 43 mg/dL (40-60) Cholesterol/HDL Ratio 2.6 Thyroid Stimulating Hormone (TSH) 1.667 uIU/mL (0.358-3.74) Glucose (Fingerstick) 329 mg/dL (70-99) H 392 mg/dL (70-99) H 286 mg/dL (70-99) H Test 10/28/21 11:09 10/28/21 12:17 Glucose (Fingerstick) 203 mg/dL (70-99) H 128 mg/dL (70-99) H Laboratory Tests 10/28/21 02:30 Laboratory Tests 10/28/21 02:30 ASSESSMENT/PLAN ASSESSMENT/PLAN 1. NSTEMI: possibly demand mediated but could not completely rule out ischemic etiology 2. AECOPD 3. URI 4. Nausea/vomiting/diarrhea: no abd pain. per PCP 5. Hx of orthostasis: on midodrine and florinef 6. Hyperlipidemia 7. CAD: hx of mild nonobstructive CAD per [facility] in 2016 8. DM2 9. Hypothyroidism: on replacement 10. Hx of gastric AVM with cautery 11. Hx of Fe anemia and myelodysplastic syndrome 12. CKD4: baseline Cr at 1.8 13. ILR in situ: battery depleted. Will need outpt extraction Recommendations 1. Continue pulmonary optimization 2. Obtain another troponin. TTE pending 3. Will need ischemic workup possibly as an outpt pending tests. 4. Continue secondary prevention measures. Baby ECASA 5. Avoid nephrotoxic agents 6. Follow up with Dr. Winn at [facility] cardiology MALIA MAY APRN Oct 28, 2021 12:31
[2021-10-28] MEDS: BENZONATATE 100 MG CAPSULE. PO SCH ×2 (13:11→20:31)
[2021-10-28 15:00] VITALS: BP 100/33
--- NOTE | 2021-10-28 15:26 | EKG ---
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
[2021-10-28 19:00] VITALS: BP 106/40
[2021-10-28] MEDS: GABAPENTIN 300 MG CAPSULE. PO SCH (20:31)
[2021-10-28] MEDS: traZODone 100 MG TABLET. PO SCH (20:31)
[2021-10-28] MEDS: INSULIN GLARGINE SYRINGE. SQ SCH (20:33)
[2021-10-28 21:28] LABS: BILIRUBIN,URINE NEGATIVE (NEG); CLARITY,URINE CLEAR; COLOR,URINE YELLOW; NITRITE,URINE NEGATIVE (NEG); PH,URINE 5.5 (<5.0-8.0); PROTEIN,URINE NEGATIVE (NEG-TRACE); UROBILINOGEN,URINE 0.2 mg/dL (0.2 mg/dL)
[2021-10-28 21:29] LABS: RBC,URINE RARE /HPF (0-2)
[2021-10-28 21:30] LABS: BACTERIA,URINE 0 /HPF (0-FEW)
[2021-10-28 23:00] VITALS: BP 111/46
[2021-10-29 02:44] VITALS: BP 107/49
[2021-10-29] MEDS: LEVOTHYROXINE 125 MCG TABLET PO SCH (05:40)
[2021-10-29 07:00] VITALS: BP 101/53
[2021-10-29] MEDS: IPRATRPIUM/ALBUTEROL 0.5/2.5MG 3 ML NEBU. NEB SCH ×4 (07:22→20:27)
[2021-10-29 07:32] LABS: BASO % 0 % (0-3); EOS % 0 % (0-3); HEMATOCRIT 24.3 % (36.0-47.0); HEMOGLOBIN 7.6 g/dL (12.0-15.5); LYMPH # 0.5 x10^3/uL (1.0-4.8); LYMPH % 4 % (24-48); MEAN CORPUSCULAR HEMOGLOBIN 32 pg (25-35); MEAN CORPUSCULAR HGB CONC 31 g/dL (31-37); MEAN CORPUSCULAR VOLUME 103 fL (79-100); MONO # 0.2 x10^3/uL (0.0-1.1); MONO % 2 % (0-9); NEUT # 10.2 x10^3/uL (1.8-7.7); NEUT % 94 % (31-73); PLATELET COUNT 188 x10^3/uL (140-400); RED BLOOD COUNT 2.36 x10^6/uL (3.50-5.40); RED CELL DISTRIBUTION WIDTH 16.6 % (11.5-14.5); WHITE BLOOD COUNT 10.8 x10^3/uL (4.0-11.0)
[2021-10-29 07:43] LABS: CALCIUM 7.6 mg/dL (8.5-10.1); CREATININE 2.3 mg/dL (0.6-1.0); GFR 20.5; POTASSIUM 4.7 mmol/L (3.5-5.1)
[2021-10-29] MEDS: FLUDROCORTISONE 0.1 MG TABLET PO SCH (07:56)
[2021-10-29] MEDS: FENOFIBRATE,MICRONIZED 134 MG CAPSULE PO SCH (07:56)
[2021-10-29] MEDS: ASPIRIN ENTERIC COATED 81 MG TABLET.DR. PO SCH (07:56)
[2021-10-29] MEDS: AZITHROMYCIN 250 MG TABLET. PO SCH (07:57)
[2021-10-29] MEDS: CALCITRIOL 0.25 MCG CAPSULE. PO SCH (07:57)
[2021-10-29] MEDS: CITALOPRAM 20 MG TABLET. PO SCH (07:57)
[2021-10-29] MEDS: BENZONATATE 100 MG CAPSULE. PO SCH ×3 (07:57→21:00)
--- NOTE | 2021-10-29 07:57 | CARD ---
MR#: [id number] Date of Study: 10/28/2021 Ordering Physician: MALIA MAY, Referring Physician: MALIA MAY Tech: Chantelle Almazan [facility] APPROVED REPORT EXAM: Two-dimensional and M-mode echocardiogram with Doppler and color Doppler. Other Information Quality : Technically LimitedHR: 93bpm INDICATION Chest Pain RISK FACTORS Hyperlipidemia Diabetes 2D DIMENSIONS RVDd3.7 (2.9-3.5cm)Left Atrium(2D)3.4 (1.6-4.0cm) IVSd1.1 (0.7-1.1cm)Aortic Root(2D)3.6 (2.0-3.7cm) LVDd4.3 (3.9-5.9cm)LVOT Diameter2.1 (1.8-2.4cm) PWd1.2 (0.7-1.1cm)LVDs2.4 (2.5-4.0cm) FS (%) 42.9 %SV60.2 ml LVEF(%)74.3 (>50%) Aortic Valve AoV Peak Emile.197.6cm/sAoV VTI37.6cm AO Peak GR.15.6mmHgLVOT Peak Emile.126.3cm/s AO Mean GR.8mmHgAVA (VMAX)2.13cm2 Pulmonary Valve PV Peak Ozjwluih281.1cm/s Tricuspid Valve TR P. Oszspmyn507yp/sTR Peak Gr.32mmHg LEFT VENTRICLE The left ventricle is normal size. There is mild concentric left ventricular hypertrophy. The left ve ntricular systolic function is normal. Estimated ejection fraction 65%, There is normal LV segmental wall motion. RIGHT VENTRICLE The right ventricle is normal size. There is normal right ventricular wall thickness. The right ventr icular systolic function is normal. ATRIA The left atrium size is normal. The right atrium size is normal. The interatrial septum is intact wit h no evidence for an atrial septal defect or patent foramen ovale as noted on 2-D or Doppler imaging. AORTIC VALVE The aortic valve is normal in structure and function. Doppler and Color Flow revealed no significant aortic regurgitation. There is no significant aortic valvular stenosis. MITRAL VALVE The mitral valve is normal in structure and function. There is no evidence of mitral valve prolapse. There is no mitral valve stenosis. Doppler and Color-flow revealed trace mitral regurgitation. TRICUSPID VALVE The tricuspid valve is normal in structure and function. Doppler and Color Flow revealed trace tricus pid regurgitation. Estimated PAP 35 mmHg. There is no tricuspid valve stenosis. PULMONIC VALVE The pulmonary valve is normal in structure and function. Doppler and Color Flow revealed no pulmonic valvular regurgitation. GREAT VESSELS The aortic root is upper limits of normal size. The ascending aorta is normal in size. The IVC is nor mal in size and collapses >50% with inspiration. PERICARDIAL EFFUSION There is no evidence of significant pericardial effusion. Critical Notification Critical Value: No <Conclusion> The left ventricular systolic function is normal. Estimated ejection fraction 65%, There is normal LV segmental wall motion. Trace mitral regurgitation. Trace tricuspid regurgitation. Estimated PAP 35 mmHg. There is no evidence of significant pericardial effusion. Signed by : Rhett Batres, Electronically Approved : 10/29/2021 07:56:56
[2021-10-29] MEDS: methylPREDNISolone SOD SUCC PF 40 MG/ML VIAL. IV SCH ×2 (07:58→21:00)
[2021-10-29] MEDS: INSULIN LISPRO 300 UNITS/3 ML VIAL. SQ SCH ×6 (08:15→17:46)
[2021-10-29 11:00] VITALS: BP 124/55
--- NOTE | 2021-10-29 11:12 | PDOC ---
[employer] PROGRESS NOTE Date of Service DOS: DATE: 10/29/21 TIME: 11:07 Chief Complaint Chief Complaint Concern for non-STEMI Acute respiratory failure with hypoxia Acute COPD exacerbation DM2 with hyperglycemia History of leukemia Constipation History of Present Illness History of Present Illness The patient is a pleasant 81-year-old female with known COPD. She presents to the ER today with shortness of breath. I discussed the case with ER physician. It seems that the patient is having a COPD exacerbation. We are going to admit the patient and gave her COPD protocol. 10/28/2021: Patient seen and evaluated bedside. Still breathing on 3 L nasal cannula. She reports cough without significant sputum production. States her last COPD exacerbation was 4-5 years ago. She normally feels better after Z- [place]. Just prior to my evaluation she finished breathing treatment with expiratory therapist. Will add azithromycin and guaifenesin. If no significant improvement in breathing will consult pulmonology. Of note, she has history of leukemia and states hemoglobin is chronically low. We will continue to monitor. Will adjust insulin regimen. 10/29/2021 No acute events overnight. Troponins increased to 5000. Pending cardiology evaluation. No chest pain at this time. No telemetry events overnight. Patient asking for stool softener and laxative. Ordered docusate and MiraLAX. Patient's chart, labs, images were reviewed and discussed with RN Vitals/I&O Vitals/I&O: Vital Signs Date Time Temp Pulse Resp B/P (MAP) Pulse Ox O2 Delivery O2 Flow Rate FiO2 10/29/21 11:00 97.9 92 18 124/55 (78) 97 Nasal Cannula 3.0 97.9 I & O 10/28/21 10/28/21 10/29/21 15:00 23:00 07:00 Intake Total 140 ml 240 ml 300 ml Balance 140 ml 240 ml 300 ml Physical Exam General: Alert, Oriented X3, Cooperative, No acute distress Heart: Regular rate (SR), Normal S1, Normal S2 Lungs: Wheezing Abdomen: Soft, No tenderness Extremities: No cyanosis, No edema Skin: No breakdown Labs Labs: Laboratory Tests Test 10/28/21 11:09 10/28/21 12:17 10/28/21 13:19 10/28/21 14:28 Glucose (Fingerstick) 203 mg/dL (70-99) 128 mg/dL (70-99) 194 mg/dL (70-99) 223 mg/dL (70-99) Test 10/28/21 14:33 10/28/21 15:27 10/28/21 16:33 10/28/21 17:49 Troponin I High Sensitivity 5218 ng/L (4-50) Glucose (Fingerstick) 246 mg/dL (70-99) 238 mg/dL (70-99) 274 mg/dL (70-99) Test 10/28/21 20:06 10/28/21 21:10 10/29/21 05:40 10/29/21 07:29 Glucose (Fingerstick) 278 mg/dL (70-99) 356 mg/dL (70-99) Urine Collection Type Unknown Urine Color Yellow Urine Clarity Clear Urine pH 5.5 (<5.0-8.0) Urine Specific [place] <=1.005 (1.000-1.030) Urine Protein Negative mg/dL (NEG-TRACE) Urine Glucose (UA) Negative mg/dL (NEG) Urine Ketones (Stick) Negative mg/dL (NEG) Urine Blood Trace (NEG) Urine Nitrite Negative (NEG) Urine Bilirubin Negative (NEG) Urine Urobilinogen Dipstick 0.2 mg/dL (0.2 mg/dL) Urine Leukocyte Esterase Negative (NEG) Urine RBC Rare /HPF (0-2) Urine WBC 1-4 /HPF (0-4) Urine Squamous Epithelial Cells Few /LPF Urine Bacteria 0 /HPF (0-FEW) Urine Mucus Slight /LPF White Blood Count 10.8 x10^3/uL (4.0-11.0) Red Blood Count 2.36 x10^6/uL (3.50-5.40) Hemoglobin 7.6 g/dL (12.0-15.5) Hematocrit 24.3 % (36.0-47.0) Mean Corpuscular Volume 103 fL (79-100) Mean Corpuscular Hemoglobin 32 pg (25-35) Mean Corpuscular Hemoglobin Concent 31 g/dL (31-37) Red Cell Distribution Width 16.6 % (11.5-14.5) Platelet Count 188 x10^3/uL (140-400) Neutrophils (%) (Auto) 94 % (31-73) Lymphocytes (%) (Auto) 4 % (24-48) Monocytes (%) (Auto) 2 % (0-9) Eosinophils (%) (Auto) 0 % (0-3) Basophils (%) (Auto) 0 % (0-3) Neutrophils # (Auto) 10.2 x10^3/uL (1.8-7.7) Lymphocytes # (Auto) 0.5 x10^3/uL (1.0-4.8) Monocytes # (Auto) 0.2 x10^3/uL (0.0-1.1) Eosinophils # (Auto) 0.0 x10^3/uL (0.0-0.7) Basophils # (Auto) 0.0 x10^3/uL (0.0-0.2) Sodium Level 139 mmol/L (136-145) Potassium Level 4.7 mmol/L (3.5-5.1) Chloride Level 101 mmol/L (98-107) Carbon Dioxide Level 27 mmol/L (21-32) Anion Gap 11 (6-14) Blood Urea Nitrogen 38 mg/dL (7-20) Creatinine 2.3 mg/dL (0.6-1.0) Estimated GFR (Cockcroft-Gault) 20.5 Glucose Level 396 mg/dL (70-99) Calcium Level 7.6 mg/dL (8.5-10.1) Assessment and Plan Assessmemt and Plan Problems Medical Problems: (1) Acute hypoxemic respiratory failure Status: Acute (2) Anemia Status: Acute (3) COPD with exacerbation Status: Acute (4) Demand ischemia Status: Acute (5) Renal insufficiency Status: Acute Comment Review of Relevant I have reviewed the following items carlos alberto (where applicable) has been applied. Medications: Current Medications Medications (Trade) Dose Ordered Sig/Roscoe Route PRN Reason Start Time Stop Time Status Last Admin Dose Admin Insulin Glargine (Lantus Syringe) 30 unit QHS SQ 10/28/21 21:00 10/28/21 20:33 Insulin Human Lispro (HumaLOG) 12 units TIDWMEALS SQ 10/28/21 12:00 10/29/21 08:18 Azithromycin (Zithromax) 500 mg 1X ONCE PO 10/28/21 12:00 10/28/21 12:01 DC 10/28/21 13:10 Azithromycin (Zithromax) 250 mg DAILY PO 10/29/21 09:00 11/01/21 09:01 10/29/21 07:57 Benzonatate (Tessalon Perle) 100 mg [id number] PO 10/28/21 13:00 10/29/21 07:57 Aspirin (Ecotrin) 81 mg [id number] PO 10/29/21 08:00 10/29/21 07:56 Enoxaparin Sodium (Lovenox 100mg Syringe) 90 mg 1X ONCE SQ 10/28/21 15:15 10/28/21 15:16 DC 10/28/21 15:22 Justifications for Admission Other Justification SAMMIE THOMPSON MD Oct 29, 2021 11:12
--- NOTE | 2021-10-29 11:28 | PDOC ---
MALIA MAY MELTING OPERATOR 10/29/21 1128: CARDIO Progress Notes Date and Time Date of Service 10/29/2021 Time of Evaluation 1100 Subjective Subjective: No Chest Pain, No shortness of breath, No Palpitations Vitals Vitals Vital Signs Date Time Temp Pulse Resp B/P (MAP) Pulse Ox O2 Delivery O2 Flow Rate FiO2 10/29/21 11:00 97.9 92 18 124/55 (78) 97 Nasal Cannula 3.0 97.9 Weight Weight [ ] Input and Output Intake and Output Intake and Output 10/29/21 07:00 Intake Total 680 ml Balance 680 ml Intake Oral 680 ml # Voids 3 Laboratory Labs Laboratory Tests Test 10/28/21 12:17 10/28/21 13:19 10/28/21 14:28 10/28/21 14:33 Glucose (Fingerstick) 128 mg/dL (70-99) 194 mg/dL (70-99) 223 mg/dL (70-99) Troponin I High Sensitivity 5218 ng/L (4-50) Test 10/28/21 15:27 10/28/21 16:33 10/28/21 17:49 10/28/21 20:06 Glucose (Fingerstick) 246 mg/dL (70-99) 238 mg/dL (70-99) 274 mg/dL (70-99) 278 mg/dL (70-99) Test 10/28/21 21:10 10/29/21 05:40 10/29/21 07:29 Urine Collection Type Unknown Urine Color Yellow Urine Clarity Clear Urine pH 5.5 (<5.0-8.0) Urine Specific [place] <=1.005 (1.000-1.030) Urine Protein Negative mg/dL (NEG-TRACE) Urine Glucose (UA) Negative mg/dL (NEG) Urine Ketones (Stick) Negative mg/dL (NEG) Urine Blood Trace (NEG) Urine Nitrite Negative (NEG) Urine Bilirubin Negative (NEG) Urine Urobilinogen Dipstick 0.2 mg/dL (0.2 mg/dL) Urine Leukocyte Esterase Negative (NEG) Urine RBC Rare /HPF (0-2) Urine WBC 1-4 /HPF (0-4) Urine Squamous Epithelial Cells Few /LPF Urine Bacteria 0 /HPF (0-FEW) Urine Mucus Slight /LPF White Blood Count 10.8 x10^3/uL (4.0-11.0) Red Blood Count 2.36 x10^6/uL (3.50-5.40) Hemoglobin 7.6 g/dL (12.0-15.5) Hematocrit 24.3 % (36.0-47.0) Mean Corpuscular Volume 103 fL (79-100) Mean Corpuscular Hemoglobin 32 pg (25-35) Mean Corpuscular Hemoglobin Concent 31 g/dL (31-37) Red Cell Distribution Width 16.6 % (11.5-14.5) Platelet Count 188 x10^3/uL (140-400) Neutrophils (%) (Auto) 94 % (31-73) Lymphocytes (%) (Auto) 4 % (24-48) Monocytes (%) (Auto) 2 % (0-9) Eosinophils (%) (Auto) 0 % (0-3) Basophils (%) (Auto) 0 % (0-3) Neutrophils # (Auto) 10.2 x10^3/uL (1.8-7.7) Lymphocytes # (Auto) 0.5 x10^3/uL (1.0-4.8) Monocytes # (Auto) 0.2 x10^3/uL (0.0-1.1) Eosinophils # (Auto) 0.0 x10^3/uL (0.0-0.7) Basophils # (Auto) 0.0 x10^3/uL (0.0-0.2) Sodium Level 139 mmol/L (136-145) Potassium Level 4.7 mmol/L (3.5-5.1) Chloride Level 101 mmol/L (98-107) Carbon Dioxide Level 27 mmol/L (21-32) Anion Gap 11 (6-14) Blood Urea Nitrogen 38 mg/dL (7-20) Creatinine 2.3 mg/dL (0.6-1.0) Estimated GFR (Cockcroft-Gault) 20.5 Glucose Level 396 mg/dL (70-99) Calcium Level 7.6 mg/dL (8.5-10.1) Glucose (Fingerstick) 356 mg/dL (70-99) Microbiology Micro Microbiology 10/27/21 Blood Culture - Preliminary, Resulted NO GROWTH AFTER 1 DAY Physical Exam HEENT: Neck Supple W Full Motion Chest: Symmetric LUNGS: Other (diminished bases) Heart: RRR (SR) Abdomen: Soft N/T Extremities: No Edema, No Calf Tenderness Neurology: alert, oriented, follow commands Assessment Assessment 1. NSTEMI: possibly demand mediated but could not completely rule out ischemic etiology. EF and WM nml per TTE 2. AECOPD 3. URI 4. Nausea/vomiting/diarrhea: no abd pain. per PCP 5. Hx of orthostasis: on midodrine and florinef 6. Hyperlipidemia 7. CAD: hx of mild nonobstructive CAD per [facility] in 2015 8. DM2 9. Hypothyroidism: on replacement 10. Hx of gastric AVM with cautery 11. Hx of Fe anemia and myelodysplastic syndrome 12. CKD4: baseline Cr at 1.8 13. ILR in situ: battery depleted. Will need outpt extraction Recommendations 1. Continue pulmonary optimization 2. Troponin trended up, will repeat today. Discussed ischemic workup. Pending trop level likely MPI today. 3. Continue secondary prevention measures. Baby ECASA 4. Avoid nephrotoxic agents 5. Follow up with Dr. Winn at [facility] cardiology Justicifation of Admission Dx: Justifications for Admission: Justification of Admission Dx: Yes MARILU HADLEY MD 10/29/21 1625: CARDIO Progress Notes Assessment Assessment Patient seen and examined I agree with our nurse practitioners assessment and plan. NSTEMI: possibly demand mediated but could not completely rule out ischemic etiology. EF and WM nml per TTE. Continuing medical treatment. MPI testing. AECOPD URI Hx of orthostasis: on midodrine and florinef Hyperlipidemia CAD: hx of mild nonobstructive CAD per [facility] in 2015 DM2 Hypothyroidism: on replacement Hx of gastric AVM with cautery Hx of Fe anemia and myelodysplastic syndrome CKD4: Monitoring lab. ILR in situ: battery depleted. Will need outpt extraction MALIA MAY APRN Oct 29, 2021 11:28 MARILU HADLEY MD Oct 29, 2021 16:25
[2021-10-29] MEDS: POLYETHYLENE GLYCOL 3350 17 GM PACKET. PO SCH ×2 (11:37→15:06)
[2021-10-29] MEDS ORDERED: LACTOBACILLUS RHAMNOSUS GG 1 CAPSULE. PO SCH (12:00)
[2021-10-29 15:00] VITALS: BP 126/54
[2021-10-29] MEDS: DOCUSATE SODIUM 100 MG CAPSULE. PO PRN ×2 (17:31→21:41)
[2021-10-29 19:00] VITALS: BP 129/52
[2021-10-29] MEDS ORDERED: CALCIUM CARBONATE 500 MG TAB.CHEW PO PRN (21:15)
[2021-10-29] MEDS ORDERED: FAMOTIDINE 20 MG/2 ML VIAL IVP ONE (21:15)
[2021-10-29] MEDS: traZODone 100 MG TABLET. PO SCH (21:41)
[2021-10-29] MEDS: ATORVASTATIN CALCIUM 40 MG TABLET. PO SCH (21:41)
[2021-10-29] MEDS: GABAPENTIN 300 MG CAPSULE. PO SCH (21:41)
[2021-10-29] MEDS: INSULIN GLARGINE SYRINGE. SQ SCH (21:43)
[2021-10-29 23:32] VITALS: BP 122/54
[2021-10-30 03:45] VITALS: BP 126/53
[2021-10-30] MEDS: POLYETHYLENE GLYCOL 3350 17 GM PACKET. PO SCH ×5 (04:44→23:30)
[2021-10-30] MEDS: LEVOTHYROXINE 125 MCG TABLET PO SCH (04:44)
[2021-10-30 07:00] VITALS: BP 138/58
[2021-10-30] MEDS: IPRATRPIUM/ALBUTEROL 0.5/2.5MG 3 ML NEBU. NEB SCH ×4 (07:12→19:26)
[2021-10-30] MEDS: INSULIN LISPRO 300 UNITS/3 ML VIAL. SQ SCH ×6 (07:53→17:00)
[2021-10-30] MEDS ORDERED: REGADENOSON 0.4 MG/5 ML DISP.SYRIN. IV ONE (09:00)
--- NOTE | 2021-10-30 09:07 | PDOC ---
MALIA MAY SUPERVISOR [employer]USTRI[employer] GARMENT 10/30/21 0907: CARDIO Progress Notes Date and Time Date of Service 10/30/2021 Time of Evaluation 0940 Subjective Subjective: No Chest Pain, No shortness of breath, No Palpitations Vitals Vitals Vital Signs Date Time Temp Pulse Resp B/P (MAP) Pulse Ox O2 Delivery O2 Flow Rate FiO2 10/30/21 08:00 Nasal Cannula 2.0 10/30/21 07:13 99 10/30/21 07:00 98.0 86 18 138/58 (84) 98.0 Weight Weight [ ] Input and Output Intake and Output Intake and Output 10/30/21 07:00 Intake Total 600 ml Balance 600 ml Intake Oral 600 ml # Voids 4 Laboratory Labs Laboratory Tests Test 10/29/21 11:34 10/29/21 12:22 10/29/21 16:26 10/29/21 20:09 Glucose (Fingerstick) 369 mg/dL (70-99) 372 mg/dL (70-99) 319 mg/dL (70-99) Troponin I High Sensitivity 4055 ng/L (4-50) Test 10/30/21 07:40 Glucose (Fingerstick) 305 mg/dL (70-99) Microbiology Micro Microbiology 10/27/21 Blood Culture - Preliminary, Resulted NO GROWTH AFTER 2 DAYS Physical Exam HEENT: Neck Supple W Full Motion Chest: Symmetric LUNGS: Other (diminished bases, basilar crackles) Heart: RRR (SR) Abdomen: Soft N/T Extremities: No Edema, No Calf Tenderness Neurology: alert, oriented, follow commands Assessment Assessment 1. NSTEMI: possibly demand mediated but could not completely rule out ischemic etiology. EF and WM nml per TTE. CP free 2. AECOPD 3. URI 4. Nausea/vomiting/diarrhea: none further per PCP 5. Hx of orthostasis: on midodrine and florinef 6. Hyperlipidemia 7. CAD: hx of mild nonobstructive CAD per [facility] in 2016 8. DM2 9. Hypothyroidism: on replacement 10. Hx of gastric AVM with cautery 11. Hx of Fe anemia and myelodysplastic syndrome 12. CKD4: baseline Cr at 1.8 13. ILR in situ: battery depleted. Will need outpt extraction Recommendations 1. Continue pulmonary optimization 2. MPI today 3. Continue secondary prevention measures. Baby ECASA 4. Avoid nephrotoxic agents 5. Follow up with Dr. Winn at [facility] cardiology Justicifation of Admission Dx: Justifications for Admission: Justification of Admission Dx: Yes MARILU HADLEY MD 10/30/21 1734: CARDIO Progress Notes Assessment Assessment Patient seen and examined The patient looks and feels better. I agree with our nurse practitioners assessment and plan. NSTEMI: possibly demand mediated but could not completely rule out ischemic etiology. EF and WM nml per TTE. CP free. MPI testing today shows no evidence of reversible ischemia or infarct. LV systolic function is normal. Continue medical treatment. AECOPD URI Hx of orthostasis: on midodrine and florinef Hyperlipidemia CAD: hx of mild nonobstructive CAD per [facility] in 2016 DM2 CKD4: baseline Cr at 1.8 ILR in situ: battery depleted. Will need outpt extraction. Follows at . MALIA MAY APRN Oct 30, 2021 09:07 MARILU HADLEY MD Oct 30, 2021 17:34
--- NOTE | 2021-10-30 10:35 | PDOC ---
[employer] PROGRESS NOTE Date of Service DOS: DATE: 10/30/21 TIME: 10:34 Chief Complaint Chief Complaint Concern for non-STEMI Acute respiratory failure with hypoxia Acute COPD exacerbation DM2 with hyperglycemia History of leukemia Constipation History of Present Illness History of Present Illness The patient is a pleasant 81-year-old female with known COPD. She presents to the ER today with shortness of breath. I discussed the case with ER physician. It seems that the patient is having a COPD exacerbation. We are going to admit the patient and gave her COPD protocol. 10/28/2021: Patient seen and evaluated bedside. Still breathing on 3 L nasal cannula. She reports cough without significant sputum production. States her last COPD exacerbation was 4-5 years ago. She normally feels better after Z- Jaydon. Just prior to my evaluation she finished breathing treatment with expiratory therapist. Will add azithromycin and guaifenesin. If no significant improvement in breathing will consult pulmonology. Of note, she has history of leukemia and states hemoglobin is chronically low. We will continue to monitor. Will adjust insulin regimen. 10/29/2021 No acute events overnight. Troponins increased to 5000. Pending cardiology evaluation. No chest pain at this time. No telemetry events overnight. Patient asking for stool softener and laxative. Ordered docusate and MiraLAX. Patient's chart, labs, images were reviewed and discussed with RN 10/30/2021 No acute events overnight. Patient seen and examined resting comfortably. No reported chest pain overnight. Troponin still in 4000s. Plan for stress test today. Patient's chart, labs, images were reviewed and discussed with RN Vitals/I&O Vitals/I&O: Vital Signs Date Time Temp Pulse Resp B/P (MAP) Pulse Ox O2 Delivery O2 Flow Rate FiO2 10/30/21 08:00 Nasal Cannula 2.0 10/30/21 07:13 99 10/30/21 07:00 98.0 86 18 138/58 (84) 98.0 I & O 10/29/21 10/29/21 10/30/21 15:00 23:00 07:00 Intake Total 180 ml 180 ml 240 ml Balance 180 ml 180 ml 240 ml Physical Exam General: Alert, Oriented X3, Cooperative, No acute distress Heart: Regular rate (SR), Normal S1, Normal S2 Lungs: Wheezing Abdomen: Soft, No tenderness Extremities: No cyanosis, No edema Skin: No breakdown Labs Labs: Laboratory Tests Test 10/29/21 11:34 10/29/21 12:22 10/29/21 16:26 10/29/21 20:09 Glucose (Fingerstick) 369 mg/dL (70-99) 372 mg/dL (70-99) 319 mg/dL (70-99) Troponin I High Sensitivity 4055 ng/L (4-50) Test 10/30/21 07:40 Glucose (Fingerstick) 305 mg/dL (70-99) Assessment and Plan Assessmemt and Plan Problems Medical Problems: (1) Acute hypoxemic respiratory failure Status: Acute (2) Anemia Status: Acute (3) COPD with exacerbation Status: Acute (4) Demand ischemia Status: Acute (5) Renal insufficiency Status: Acute Comment Review of Relevant I have reviewed the following items carlos alberto (where applicable) has been applied. Medications: Current Medications Medications (Trade) Dose Ordered Sig/Roscoe Route PRN Reason Start Time Stop Time Status Last Admin Dose Admin Polyethylene Glycol (miraLAX PACKET) 17 gm Q6HRS PO 10/29/21 12:00 10/29/21 15:06 Docusate Sodium (Colace) 100 mg PRN BID PRN PO HARD STOOLS 10/29/21 11:15 10/29/21 21:41 Enoxaparin Sodium (Lovenox 100mg Syringe) 90 mg 1X ONCE SQ 10/29/21 15:30 10/29/21 15:31 DC 10/29/21 17:35 Calcium Carbonate/ Glycine (Tums) 1,000 mg PRN Q4HRS PRN PO INDIGESTION 10/29/21 21:15 10/29/21 21:41 Famotidine (Pepcid Vial) 20 mg 1X ONCE IVP 10/29/21 21:15 10/29/21 21:16 DC 10/29/21 21:15 Justifications for Admission Other Justification SAMMIE THOMPSON MD Oct 30, 2021 10:35
[2021-10-30 10:36] VITALS: BP 133/58
--- NOTE | 2021-10-30 10:47 | NUR ---
SW following. Discussed with RN, pt from home with , 2L (does not use oxygen at home), NPO, COVID-19 negative. PT/OT ordered. Pt having a stress test today. SW will continue to follow.
[2021-10-30] MEDS: BENZONATATE 100 MG CAPSULE. PO SCH ×3 (11:18→20:40)
[2021-10-30] MEDS: AZITHROMYCIN 250 MG TABLET. PO SCH (11:18)
[2021-10-30] MEDS: FENOFIBRATE,MICRONIZED 134 MG CAPSULE PO SCH (11:18)
[2021-10-30] MEDS: FLUDROCORTISONE 0.1 MG TABLET PO SCH (11:19)
[2021-10-30] MEDS: CITALOPRAM 20 MG TABLET. PO SCH (11:19)
[2021-10-30] MEDS: methylPREDNISolone SOD SUCC PF 40 MG/ML VIAL. IV SCH ×2 (11:19→20:58)
[2021-10-30] MEDS: ASPIRIN ENTERIC COATED 81 MG TABLET.DR. PO SCH (11:19)
[2021-10-30] MEDS: CALCITRIOL 0.25 MCG CAPSULE. PO SCH (11:20)
[2021-10-30] MEDS: INSULIN GLARGINE SYRINGE. SQ SCH ×2 (12:02→21:13)
[2021-10-30 15:00] VITALS: BP 116/63
--- NOTE | 2021-10-30 17:12 | RAD ---
MR#: [id number] Date of Study: 10/30/2021 Ordering Physician: MALIA MAY, Referring Physician: DELANEY HOLGUIN Tech: RT Jose (R) (N) APPROVED REPORT Test Type: Pharmacological Stress Nurse/Tech: Cindy Jose R.N. Test Indications: chest pain Cardiac History: copd, [place] 6 years ago, htn, dm Medications: see ehr Medical History: stage IV kidney disease, [place] Resting ECG: sr Resting Heart Rate: 80 bpm Resting Blood Pressure: 127/49mmHg Pretest Chest Pain: No chest pain Nurse/Tech Notes lungs diminished and tight, pt with frequent cough, O2 applied for test, heart tones regular Consent: The procedure was explained to the patient in lay terms. Informed consent was witnessed. Sampson eout was entered into [employer]. History and Stress Test performed by MARY Loyd Pharm. Details Pharmacologic stress testing was performed using 0.4mg per 5ml of regadenoson given intravenously ove r 7-10 seconds. Stress Symptoms No chest pain or symptoms. POST EXERCISE Reason for Termination: Infusion complete Target HR: No Max HR: 102 bpm Max Blood Pressure: 129/52mmHg Chest Pain: No. Arrhythmia: Yes. unifocal PVCs noted ST Change: No. INTERPRETATION Stress EKG Conclusion: Baseline EKG showed sinus rhythm. Non-diagnostic changes at peak stress. Few PVC's without any significant arrhythmias. Imaging Protocol IMAGE PROTOCOL: Rest Tc-99m/stress Tc-99m 1 day Rest: Stress: Viability: Radiopharm.Tc99m QpfykdthcIi82b Sestamibi Vxpk75kOx 31mCi Duration 13min. 13min. Img Date 10/30/2021 10/30/2021 Rest Admin Site:IV - Left HandAdministrator:MARY Loyd Stress Admin Site: IV - Left HandAdministrator: MARY Loyd STRESS DATA End Diast. Vol.100.0mlLVEDV index BSA50.0ml End Syst. Vol.30.0mlLVESV index BSA15.0ml Myocardial Mvmk348.0gEject. Rlxqqqyp00.0% Stress Scores Regional WT0.00Summed WT3.00 Regional WM0.00Summed WM1.00 Study quality was good. Left Ventricular size was Normal at Rest and Stress. Lung uptake was . Left Ventricular ejection fraction is 69%. The rest and stress images show normal perfusion, normal contraction and thickening. LV Perf. Quant 17 Seg. SSS5.00 17 Seg. SRS0.00 17 Seg. SDS5.00 Stress Defect Extent (% LAD)0.00Rest Defect Extent (% LAD)0.00Rev. Defect Extent (% LAD)0.00 Stress Defect Extent (% LCX) 0.00Rest Defect Extent (% LCX)0.00Rev. Defect Extent (% LCX)0.00 Stress Defect Extent (% RCA)0.00Rest Defect Extent (% RCA)0.00Rev. Defect Extent (% RCA)0.00 Stress Defect Extent (% ALLAN)3.00Rest Defect Extent (% ALLAN)0.00Rev. Defect Extent (% ALLAN)2.80 Conclusion 1. Regadenoson cardioisotope stress test did not show any evidence of ischemia or infarct. 2. Normal left ventricular systolic function with ejection fraction calculated at 69%. 3. Low risk for cardiac events. Signed by : Rhett Batres, Electronically Approved : 10/30/2021 17:12:01
[2021-10-30] MEDS ORDERED: INSULIN LISPRO 300 UNITS/3 ML VIAL. SQ ONE (17:15)
[2021-10-30 19:00] VITALS: BP 134/59
[2021-10-30] MEDS: traZODone 100 MG TABLET. PO SCH (20:40)
[2021-10-30] MEDS: FAMOTIDINE 20 MG TABLET. PO SCH (20:41)
[2021-10-30] MEDS: GABAPENTIN 300 MG CAPSULE. PO SCH (20:41)
[2021-10-30] MEDS: ATORVASTATIN CALCIUM 40 MG TABLET. PO SCH (20:41)
[2021-10-30 23:00] VITALS: BP 135/51
[2021-10-31] MEDS: LEVOTHYROXINE 125 MCG TABLET PO SCH (06:09)
[2021-10-31 07:00] VITALS: BP 132/54
[2021-10-31] MEDS: CALCITRIOL 0.25 MCG CAPSULE. PO SCH (07:58)
[2021-10-31] MEDS: BENZONATATE 100 MG CAPSULE. PO SCH ×3 (07:58→21:06)
[2021-10-31] MEDS: ASPIRIN ENTERIC COATED 81 MG TABLET.DR. PO SCH (07:58)
[2021-10-31] MEDS: methylPREDNISolone SOD SUCC PF 40 MG/ML VIAL. IV SCH ×2 (07:59→21:06)
[2021-10-31] MEDS: AZITHROMYCIN 250 MG TABLET. PO SCH (07:59)
[2021-10-31] MEDS: CITALOPRAM 20 MG TABLET. PO SCH (07:59)
[2021-10-31] MEDS: FLUDROCORTISONE 0.1 MG TABLET PO SCH (07:59)
[2021-10-31] MEDS: FENOFIBRATE,MICRONIZED 134 MG CAPSULE PO SCH (08:00)
[2021-10-31] MEDS: IPRATRPIUM/ALBUTEROL 0.5/2.5MG 3 ML NEBU. NEB SCH ×4 (08:00→19:26)
[2021-10-31] MEDS: INSULIN LISPRO 300 UNITS/3 ML VIAL. SQ SCH ×6 (08:06→17:21)
[2021-10-31] MEDS: INSULIN GLARGINE SYRINGE. SQ SCH ×2 (08:51→21:17)
--- NOTE | 2021-10-31 09:44 | PDOC ---
[employer] PROGRESS NOTE Date of Service DOS: DATE: 10/31/21 TIME: 09:43 Chief Complaint Chief Complaint Concern for non-STEMI Acute respiratory failure with hypoxia Acute COPD exacerbation DM2 with hyperglycemia History of leukemia Constipation History of Present Illness History of Present Illness The patient is a pleasant 81-year-old female with known COPD. She presents to the ER today with shortness of breath. I discussed the case with ER physician. It seems that the patient is having a COPD exacerbation. We are going to admit the patient and gave her COPD protocol. 10/28/2021: Patient seen and evaluated bedside. Still breathing on 3 L nasal cannula. She reports cough without significant sputum production. States her last COPD exacerbation was 4-5 years ago. She normally feels better after Z- Jaydon. Just prior to my evaluation she finished breathing treatment with expiratory therapist. Will add azithromycin and guaifenesin. If no significant improvement in breathing will consult pulmonology. Of note, she has history of leukemia and states hemoglobin is chronically low. We will continue to monitor. Will adjust insulin regimen. 10/29/2021 No acute events overnight. Troponins increased to 5000. Pending cardiology evaluation. No chest pain at this time. No telemetry events overnight. Patient asking for stool softener and laxative. Ordered docusate and MiraLAX. Patient's chart, labs, images were reviewed and discussed with RN 10/30/2021 No acute events overnight. Patient seen and examined resting comfortably. No reported chest pain overnight. Troponin still in 4000s. Plan for stress test today. Patient's chart, labs, images were reviewed and discussed with RN 10/31/2021 No acute events overnight. Patient seen examined bedside. Still on 2 L nasal cannula saturating 96%. Patient does not wear home oxygen at. PT OT recommended SNF. Will discuss with social media director for desired location. Pending vitamin B12 levels and ferritin levels. Patient does have a history of anemia where she has had to take Procrit and Aranesp. Will start on vitamin B12 supplements while waiting for back for lab results. Patient's chart, labs, images were reviewed and discussed with RN Vitals/I&O Vitals/I&O: Vital Signs Date Time Temp Pulse Resp B/P (MAP) Pulse Ox O2 Delivery O2 Flow Rate FiO2 10/31/21 08:00 Nasal Cannula 2.0 10/31/21 07:00 97.6 75 20 132/54 (80) 100 97.6 I & O 10/30/21 10/30/21 10/31/21 15:00 23:00 07:00 Intake Total 600 ml Output Total 1 ml 400 ml Balance -1 ml 200 ml Physical Exam General: Alert, Oriented X3, Cooperative, No acute distress Heart: Regular rate (SR), Normal S1, Normal S2 Lungs: Wheezing Abdomen: Soft, No tenderness Extremities: No cyanosis, No edema Skin: No breakdown Labs Labs: Laboratory Tests Test 10/30/21 11:18 10/30/21 17:08 10/30/21 19:15 Glucose (Fingerstick) 279 mg/dL (70-99) 366 mg/dL (70-99) 333 mg/dL (70-99) Assessment and Plan Assessmemt and Plan Problems Medical Problems: (1) Acute hypoxemic respiratory failure Status: Acute (2) Anemia Status: Acute (3) COPD with exacerbation Status: Acute (4) Demand ischemia Status: Acute (5) Renal insufficiency Status: Acute Comment Review of Relevant I have reviewed the following items carlos alberto (where applicable) has been applied. Medications: Current Medications Medications (Trade) Dose Ordered Sig/Roscoe Route PRN Reason Start Time Stop Time Status Last Admin Dose Admin Famotidine (Pepcid) 20 mg QHS PO 10/30/21 21:00 10/30/21 20:41 Insulin Human Lispro (HumaLOG) 5 units TIDWMEALS SQ 10/30/21 12:00 10/31/21 08:08 Insulin Human Lispro (HumaLOG) 20 units 1X ONCE SQ 10/30/21 17:15 10/30/21 17:20 DC 10/30/21 17:15 Justifications for Admission Other Justification SAMMIE THOMPSON MD Oct 31, 2021 09:44
[2021-10-31] MEDS: VITAMIN B12,B9,B6 COMPLEX 1 TABLET. PO SCH (10:07)
[2021-10-31 11:00] VITALS: BP 121/52
--- NOTE | 2021-10-31 11:40 | PDOC ---
CARDIO Progress Notes Date and Time Date of Service 10/31/2021 Time of Evaluation 1130 Subjective Subjective: No Chest Pain, No shortness of breath, No Palpitations Vitals Vitals Vital Signs Date Time Temp Pulse Resp B/P (MAP) Pulse Ox O2 Delivery O2 Flow Rate FiO2 10/31/21 11:12 97 Nasal Cannula 2.0 10/31/21 11:00 97.6 77 20 121/52 (75) 97.6 Weight Weight [ ] Input and Output Intake and Output Intake and Output 10/31/21 07:00 Intake Total 600 ml Output Total 401 ml Balance 199 ml Intake Oral 600 ml Output Urine Total 401 ml # Voids 4 Laboratory Labs Laboratory Tests Test 10/30/21 17:08 10/30/21 19:15 Glucose (Fingerstick) 366 mg/dL (70-99) 333 mg/dL (70-99) Microbiology Micro Microbiology 10/27/21 Blood Culture - Preliminary, Resulted NO GROWTH AFTER 4 DAYS Physical Exam HEENT: Neck Supple W Full Motion Chest: Symmetric LUNGS: Other (diminished bases) Heart: RRR (SR) Abdomen: Soft N/T Extremities: No Edema, No Calf Tenderness Neurology: alert, oriented, follow commands Assessment Assessment 1. NSTEMI: possibly demand mediated but could not completely rule out ischemic etiology. EF and WM nml per TTE. CP free. MPI revealed no ischemia 2. AECOPD 3. URI 4. Nausea/vomiting/diarrhea: none further per PCP 5. Hx of orthostasis: on midodrine and florinef 6. Hyperlipidemia 7. CAD: hx of mild nonobstructive CAD per [facility] in 2016 8. DM2 9. Hypothyroidism: on replacement 10. Hx of gastric AVM with cautery 11. Hx of Fe anemia and myelodysplastic syndrome 12. CKD4: baseline Cr at 1.8 13. ILR in situ: battery depleted. Will need outpt extraction Recommendations 1. Continue pulmonary optimization 2. Continue secondary prevention measures. Baby ECASA 3. Avoid nephrotoxic agents 4. Follow up with Dr. Winn at [facility] cardiology 5. May DC from cardiac perspective Justicifation of Admission Dx: Justifications for Admission: Justification of Admission Dx: Yes MALIA MAY APRN Oct 31, 2021 11:40
[2021-10-31 11:45] LABS: BASO % 0 % (0-3); EOS % 0 % (0-3); HEMOGLOBIN 7.9 g/dL (12.0-15.5); LYMPH # 0.7 x10^3/uL (1.0-4.8); LYMPH % 7 % (24-48); MEAN CORPUSCULAR HEMOGLOBIN 32 pg (25-35); MEAN CORPUSCULAR HGB CONC 32 g/dL (31-37); MEAN CORPUSCULAR VOLUME 99 fL (79-100); MONO # 0.4 x10^3/uL (0.0-1.1); MONO % 4 % (0-9); NEUT # 9.2 x10^3/uL (1.8-7.7); NEUT % 89 % (31-73); PLATELET COUNT 200 x10^3/uL (140-400); RED BLOOD COUNT 2.53 x10^6/uL (3.50-5.40); RED CELL DISTRIBUTION WIDTH 15.5 % (11.5-14.5); WHITE BLOOD COUNT 10.3 x10^3/uL (4.0-11.0)
--- NOTE | 2021-10-31 13:29 | NUR ---
RODOLFO following. Discussed with RN, therapy recommending SNF. RODOLFO met with pt, pt agreeable and would like referral to [facility]. RODOLFO phoned and faxed referral, pt accepted at [facility] and can discharge there tomorrow. RODOLFO requested discharge paperwork today from Dr. Capellan so [facility] can get everything arranged. Repeat MIRACLE whitney requested. RODOLFO will continue to follow. Addendum: 10/31/21 at 1444 by FREDERIC REYNOLDS Discharge orders faxed to [facility]. Plan for discharge tomorrow (11/01/21). Addendum: 10/31/21 at 1551 by FREDERIC REYNOLDS [facility] needing pt to bring Humulin from home. RODOLFO spoke with pt, she will have her bring the medication.
[2021-10-31] MEDS ORDERED: PRED20TA PO (13:58)
--- NOTE | 2021-10-31 14:01 | SNU/HH DC ---
DISCHARGE ORDERS DISCHARGE INFORMATION: DISCHARGE DATE: Nov 01, 2021 FINAL DIAGNOSIS Problems Medical Problems: (1) Acute hypoxemic respiratory failure Status: Acute (2) Anemia Status: Acute (3) COPD with exacerbation Status: Acute (4) Demand ischemia Status: Acute (5) Renal insufficiency Status: Acute CONDITION ON DISCHARGE: Stable CODE STATUS: Code Status: Full [facility]: SNF STAY <30 DAYS: Yes POST DISCHARGE ORDERS: ACTIVITY ORDERS: Resume previous activity, Activity as tolerated WEIGHT BEARING STATUS: As tolerated DIET AFTER DISCHARGE: Cardiac FOLLOW-UP: PHYSICIAN FOLLOW-UP: PCP within 2 weeks of discharge ADDITIONAL FOLLOW-UP: Cardiology as scheduled or as needed LAB ORDERS FOR FOLLOW-UP: CBC, CMP TREATMENT/EQUIPMENT ORDERS: Physical Therapy For: Evalulation/Treatment Occupational Therapy For: Evaluation/Treatment DISCHARGE MEDICATIONS: Home Meds Active Scripts Prednisone (PREDNISONE) 20 Mg Tablet, 1 TAB PO DAILY for COPD for 5 Days, #5 TAB Prov:SAMMIE THOMPSON MD 10/31/21 Oxycodone/Apap 5-325 (PERCOCET 5-325 MG TABLET ) 1 Each Tablet, 1 TAB PO PRN Q6HRS PRN for PAIN, #12 TAB pain Prov:COLBY WHITESIDE DO 07/21/21 Reported Medications Fludrocortisone Acetate (FLUDROCORTISONE ACETATE) 0.1 Mg Tablet, 1 TAB PO DAILY for steroid, #90 TAB 1 Refill 10/27/21 Escitalopram Oxalate (LEXAPRO) 20 Mg Tablet, 1 TAB PO DAILY for dep/anx, #90 TAB 3 Refills 10/27/21 Levothyroxine Sodium (LEVOTHYROXINE SODIUM) 125 Mcg Tablet, 1 TAB PO DAILY for hypothyroid, #30 TAB 5 Refills 10/27/21 Gabapentin (GABAPENTIN ) 300 Mg Capsule, 300 MG PO HS for NEUROGENIC PAIN, CAP 10/27/21 Trazodone Hcl (TRAZODONE HCL) 100 Mg Tablet, 1 TAB PO QHS for insomnia, #30 TAB 1 Refill 10/27/21 Calcitriol (CALCITRIOL) 0.25 Mcg Capsule, 1 CAP PO DAILY for supplement, #30 CAP 5 Refills 10/27/21 Hum Insulin Nph/Reg Insulin Hm (HUMULIN 70-30 VIAL) 100 Unit/1 Ml Vial, 62 UNIT SQ DAILY for DM, EACH 10/27/21 Atorvastatin Calcium (LIPITOR) 40 Mg Tablet, 1 TAB PO DAILY for HLD, #30 TAB 5 Refills 10/27/21 Fenofibrate Nanocrystallized (FENOFIBRATE) 145 Mg Tablet, 1 TAB PO DAILY for supplement, #30 TAB 5 Refills 10/27/21 Discontinued Scripts Cephalexin (KEFLEX) 500 Mg Capsule, 1 CAP PO BID for 7 Days, #14 CAP Prov:COLBY WHITESIDE DO 07/21/21 SAMMIE THOMPSON MD Oct 31, 2021 14:01
[2021-10-31] MEDS ORDERED: OXYC1TAB15 PO (14:34)
[2021-10-31 15:00] VITALS: BP 138/73
[2021-10-31 18:53] VITALS: BP 148/62
[2021-10-31] MEDS: FAMOTIDINE 20 MG TABLET. PO SCH (21:06)
[2021-10-31] MEDS: traZODone 100 MG TABLET. PO SCH (21:06)
[2021-10-31] MEDS: ATORVASTATIN CALCIUM 40 MG TABLET. PO SCH (21:06)
[2021-10-31] MEDS: GABAPENTIN 300 MG CAPSULE. PO SCH (21:06)
[2021-10-31 23:00] VITALS: BP 141/55
[2021-11-01 03:00] VITALS: BP 121/49
[2021-11-01] MEDS: LEVOTHYROXINE 125 MCG TABLET PO SCH (06:08)
[2021-11-01 07:00] VITALS: BP 113/47
[2021-11-01] MEDS: FENOFIBRATE,MICRONIZED 134 MG CAPSULE PO SCH (08:05)
[2021-11-01] MEDS: CITALOPRAM 20 MG TABLET. PO SCH (08:05)
[2021-11-01] MEDS: ASPIRIN ENTERIC COATED 81 MG TABLET.DR. PO SCH (08:05)
[2021-11-01] MEDS: VITAMIN B12,B9,B6 COMPLEX 1 TABLET. PO SCH (08:05)
[2021-11-01] MEDS: BENZONATATE 100 MG CAPSULE. PO SCH (08:05)
[2021-11-01] MEDS: CALCITRIOL 0.25 MCG CAPSULE. PO SCH (08:05)
[2021-11-01] MEDS: AZITHROMYCIN 250 MG TABLET. PO SCH (08:05)
[2021-11-01 08:06] VITALS: BP 113/47
[2021-11-01] MEDS: FLUDROCORTISONE 0.1 MG TABLET PO SCH (08:06)
[2021-11-01] MEDS: methylPREDNISolone SOD SUCC PF 40 MG/ML VIAL. IV SCH (08:06)
[2021-11-01] MEDS: INSULIN LISPRO 300 UNITS/3 ML VIAL. SQ SCH ×4 (08:11→12:09)
[2021-11-01] MEDS: IPRATRPIUM/ALBUTEROL 0.5/2.5MG 3 ML NEBU. NEB SCH ×2 (08:36→11:23)
[2021-11-01] MEDS: INSULIN GLARGINE SYRINGE. SQ SCH (08:46)
[2021-11-01 11:01] VITALS: BP 113/71
--- NOTE | 2021-11-01 11:42 | PDOC ---
[employer] PROGRESS NOTE Date of Service DOS: DATE: 11/01/21 TIME: 11:41 Chief Complaint Chief Complaint Concern for non-STEMI Acute respiratory failure with hypoxia Acute COPD exacerbation DM2 with hyperglycemia History of leukemia Constipation History of Present Illness History of Present Illness The patient is a pleasant 81-year-old female with known COPD. She presents to the ER today with shortness of breath. I discussed the case with ER physician. It seems that the patient is having a COPD exacerbation. We are going to admit the patient and gave her COPD protocol. 10/28/2021: Patient seen and evaluated bedside. Still breathing on 3 L nasal cannula. She reports cough without significant sputum production. States her last COPD exacerbation was 4-5 years ago. She normally feels better after Z- Jaydon. Just prior to my evaluation she finished breathing treatment with expiratory therapist. Will add azithromycin and guaifenesin. If no significant improvement in breathing will consult pulmonology. Of note, she has history of leukemia and states hemoglobin is chronically low. We will continue to monitor. Will adjust insulin regimen. 10/29/2021 No acute events overnight. Troponins increased to 5000. Pending cardiology evaluation. No chest pain at this time. No telemetry events overnight. Patient asking for stool softener and laxative. Ordered docusate and MiraLAX. Patient's chart, labs, images were reviewed and discussed with RN 10/30/2021 No acute events overnight. Patient seen and examined resting comfortably. No reported chest pain overnight. Troponin still in 4000s. Plan for stress test today. Patient's chart, labs, images were reviewed and discussed with RN 10/31/2021 No acute events overnight. Patient seen examined bedside. Still on 2 L nasal cannula saturating 96%. Patient does not wear home oxygen at. PT OT recommended SNF. Will discuss with case management social worker for desired location. Pending vitamin B12 levels and ferritin levels. Patient does have a history of anemia where she has had to take Procrit and Aranesp. Will start on vitamin B12 supplements while waiting for back for lab results. Patient's chart, labs, images were reviewed and discussed with RN 11/01 Seen at bedside. No complaints. Discharge to [facility] today Vitals/I&O Vitals/I&O: Vital Signs Date Time Temp Pulse Resp B/P (MAP) Pulse Ox O2 Delivery O2 Flow Rate FiO2 11/01/21 11:01 97.9 85 20 113/71 (85) 97 Room Air 97.9 11/01/21 08:06 1.0 I & O 10/31/21 10/31/21 11/01/21 15:00 23:00 07:00 Intake Total 400 ml 500 ml Output Total 650 ml Balance 400 ml -150 ml Physical Exam General: Alert, Oriented X3, Cooperative, No acute distress Heart: Regular rate (SR), Normal S1, Normal S2 Lungs: Wheezing Abdomen: Soft, No tenderness Extremities: No cyanosis, No edema Skin: No breakdown Labs Labs: Laboratory Tests Test 10/31/21 13:48 10/31/21 17:11 10/31/21 20:16 11/01/21 07:18 SARS-CoV-2 Antigen (Rapid) Negative (NEGATIVE) Glucose (Fingerstick) 230 mg/dL (70-99) 217 mg/dL (70-99) 306 mg/dL (70-99) Assessment and Plan Assessmemt and Plan Problems Medical Problems: (1) Acute hypoxemic respiratory failure Status: Acute (2) Anemia Status: Acute (3) COPD with exacerbation Status: Acute (4) Demand ischemia Status: Acute (5) Renal insufficiency Status: Acute Comment Review of Relevant I have reviewed the following items carlos alberto (where applicable) has been applied. Justifications for Admission Other Justification BEKAH PATTERSON MD Nov 01, 2021 11:42
--- NOTE | 2021-11-01 13:08 | NUR ---
Discharge Note: IRENE KENNEDY Discharge instructions and discharge home medications reviewed with Other facility and a copy given. All questions have been answered and understanding verbalized. The following instructions and handouts were given: discharge instructions, copy of notes, labs, medications. Discontinued lines and drains: Peripheral IV discontinued intact. Patient discharged to [facility] with Transport Personnel via Wheelchair
--- NOTE | 2021-11-01 15:42 | PDOC ---
PROGRESS NOTES Date of Service DATE: 11/01/21 TIME: 15:40 Subjective Subjective Patient seen and examined Objective Objective Vital Signs Date Time Temp Pulse Resp B/P (MAP) Pulse Ox O2 Delivery O2 Flow Rate FiO2 11/01/21 11:01 97.9 85 20 113/71 (85) 97 Room Air 97.9 11/01/21 08:06 1.0 Intake and Output 11/01/21 07:00 Intake Total 900 ml Output Total 650 ml Balance 250 ml Intake Oral 900 ml Output Urine Total 650 ml # Voids 4 # Bowel Movements 1 Physical Exam Abdomen: Normal bowel sounds Heart: Regular rate General: No acute distress Lungs: Other (Minimally decreased breath sounds) Assessment Assessment Problems Medical Problems: (1) Acute hypoxemic respiratory failure Status: Acute (2) Anemia Status: Acute (3) COPD with exacerbation Status: Acute (4) Demand ischemia Status: Acute (5) Renal insufficiency Status: Acute NSTEMI: possibly demand mediated but could not completely rule out ischemic etiology. EF and WM nml per TTE. CP free. MPI revealed no ischemia. Continuing present treatment. AECOPD. Improved. Continue medications. URI Nausea/vomiting/diarrhea: none further per PCP Hx of orthostasis: on midodrine and florinef Hyperlipidemia CAD: hx of mild nonobstructive CAD per [facility] in 2016. MPI as above. DM2 Hypothyroidism: on replacement Hx of gastric AVM with cautery Hx of Fe anemia and myelodysplastic syndrome CKD4: baseline Cr at 1.8 ILR in situ: battery depleted. Will need outpt extraction. Follows with [facility]. Comment Review of Relevant I have reviewed the following items carlos alberto (where applicable) has been applied. Labs Laboratory Tests Test 10/30/21 17:08 10/30/21 19:15 10/31/21 11:27 10/31/21 11:36 Glucose (Fingerstick) 366 mg/dL (70-99) 333 mg/dL (70-99) 162 mg/dL (70-99) White Blood Count 10.3 x10^3/uL (4.0-11.0) Red Blood Count 2.53 x10^6/uL (3.50-5.40) Hemoglobin 7.9 g/dL (12.0-15.5) Hematocrit 25.0 % (36.0-47.0) Mean Corpuscular Volume 99 fL (79-100) Mean Corpuscular Hemoglobin 32 pg (25-35) Mean Corpuscular Hemoglobin Concent 32 g/dL (31-37) Red Cell Distribution Width 15.5 % (11.5-14.5) Platelet Count 200 x10^3/uL (140-400) Neutrophils (%) (Auto) 89 % (31-73) Lymphocytes (%) (Auto) 7 % (24-48) Monocytes (%) (Auto) 4 % (0-9) Eosinophils (%) (Auto) 0 % (0-3) Basophils (%) (Auto) 0 % (0-3) Neutrophils # (Auto) 9.2 x10^3/uL (1.8-7.7) Lymphocytes # (Auto) 0.7 x10^3/uL (1.0-4.8) Monocytes # (Auto) 0.4 x10^3/uL (0.0-1.1) Eosinophils # (Auto) 0.0 x10^3/uL (0.0-0.7) Basophils # (Auto) 0.0 x10^3/uL (0.0-0.2) Ferritin 98 ng/mL (8-252) Vitamin B12 Level 793 pg/mL (247-911) Test 10/31/21 13:48 10/31/21 17:11 10/31/21 20:16 11/01/21 07:18 SARS-CoV-2 Antigen (Rapid) Negative (NEGATIVE) Glucose (Fingerstick) 230 mg/dL (70-99) 217 mg/dL (70-99) 306 mg/dL (70-99) Test 11/01/21 11:49 Glucose (Fingerstick) 183 mg/dL (70-99) Laboratory Tests Test 10/31/21 17:11 10/31/21 20:16 11/01/21 07:18 11/01/21 11:49 Glucose (Fingerstick) 230 mg/dL (70-99) 217 mg/dL (70-99) 306 mg/dL (70-99) 183 mg/dL (70-99) Microbiology 10/27/21 Blood Culture - Final, Complete NO GROWTH AFTER 5 DAYS Medications Current Medications Methylprednisolone Sodium Succinate (SOLU-Medrol 125MG VIAL) 125 mg 1X ONCE IV Last administered on 10/27/21at 07:33; Start 10/27/21 at 07:00; Stop 10/27/21 at 07:01; Status DC Albuterol/ Ipratropium (Duoneb) 3 ml 1X ONCE NEB Last administered on 10/27/21at 07:40; Start 10/27/21 at 07:00; Stop 10/27/21 at 07:01; Status DC Albuterol Sulfate (Ventolin Neb Soln) 2.5 mg 1X ONCE NEB Last administered on 10/27/21at 07:40; Start 10/27/21 at 07:00; Stop 10/27/21 at 07:01; Status DC Ceftriaxone Sodium (Rocephin) 1 gm 1X ONCE IVP Last administered on 10/27/21at 07:35; Start 10/27/21 at 07:00; Stop 10/27/21 at 07:01; Status DC Acetaminophen (Tylenol) 1,000 mg 1X ONCE PO Last administered on 10/27/21at 07:46; Start 10/27/21 at 07:00; Stop 10/27/21 at 07:01; Status DC Ondansetron HCl (Zofran) 4 mg PRN Q8HRS PRN IVP NAUSEA/VOMITING Last administered on 10/27/21at 23:43; Start 10/27/21 at 10:00; Stop 10/27/21 at 23:57; Status DC Acetaminophen (Tylenol) 650 mg PRN Q4HRS PRN PO FEVER > 100.3'F; Start 10/27/21 at 10:00; Stop 10/27/21 at 23:57; Status DC Aspirin (Parker Aspirin) 325 mg 1X ONCE PO Last administered on 10/27/21at 10:52; Start 10/27/21 at 10:15; Stop 10/27/21 at 10:16; Status DC Sodium Chloride 500 ml @ 500 mls/hr 1X ONCE IV Last administered on 10/27/21at 10:54; Start 10/27/21 at 10:15; Stop 10/27/21 at 11:14; Status DC Azithromycin 500 mg/Sodium Chloride 250 ml @ 250 mls/hr 1X ONCE IV Last administered on 10/27/21at 11:02; Start 10/27/21 at 11:00; Stop 10/27/21 at 11:59; Status DC Methylprednisolone Sodium Succinate (SOLU-Medrol 40MG VIAL) 40 mg BID IV Last administered on 11/01/21at 08:06; Start 10/27/21 at 21:00; Stop 11/01/21 at 13:15 ; Status DC Albuterol/ Ipratropium (Duoneb) 3 ml RTQID NEB Last administered on 11/01/21at 08:36; Start 10/27/21 at 12:00; Stop 11/01/21 at 13:15; Status DC Morphine Sulfate (Morphine Sulfate) 2 mg PRN Q2HR PRN IVP PAIN Last administered on 10/27/21at 13:39; Start 10/27/21 at 13:30; Stop 11/01/21 at 13:15; Status DC Morphine Sulfate (Morphine Sulfate) 2 mg STK-MED ONCE .ROUTE ; Start 10/27/21 at 13:37; Stop 10/27/21 at 13:37; Status DC Atorvastatin Calcium (Lipitor) 40 mg QHS PO Last administered on 10/31/21at 21:06; Start 10/28/21 at 09:00; Stop 11/01/21 at 13:15; Status DC Calcitriol (Rocaltrol) 0.25 mcg DAILY PO Last administered on 11/01/21at 08:05; Start 10/28/21 at 09:00; Stop 11/01/21 at 13:15; Status DC Fludrocortisone Acetate (Florinef) 0.1 mg DAILY PO Last administered on 11/01/21at 08:06; Start 10/28/21 at 09:00; Stop 11/01/21 at 13:15; Status DC Gabapentin (Neurontin) 300 mg HS PO Last administered on 10/31/21at 21:06; Start 10/27/21 at 21:00; Stop 11/01/21 at 13:15; Status DC Insulin Human Isoph/Insulin Regular (HumuLIN 70-30 VIAL) 62 units DAILY SQ ; Start 10/28/21 at 09:00; Stop 10/28/21 at 11:56; Status DC Levothyroxine Sodium (Synthroid) 125 mcg DAILY06 PO Last administered on 11/01/21at 06:08; Start 10/28/21 at 06:00; Stop 11/01/21 at 13:15; Status DC Oxycodone/ Acetaminophen (Percocet 5/325) 1 tab PRN Q6HRS PRN PO MODERATE - SEVERE PAIN; Start 10/27/21 at 18:15; Stop 11/01/21 at 13:15; Status DC Trazodone HCl (Desyrel) 100 mg QHS PO Last administered on 10/31/21at 21:06; Start 10/27/21 at 21:00; Stop 11/01/21 at 13:15; Status DC Non-Formulary Medication (Cephalexin (Keflex)) 1 cap BID PO ; Start 10/27/21 at 21:00; Stop 10/27/21 at 18:23; Status DC Citalopram Hydrobromide (CeleXA) 40 mg DAILY PO Last administered on 11/01/21at 08:05; Start 10/28/21 at 09:00; Stop 11/01/21 at 13:15; Status DC Fenofibrate (Lofibra) 134 mg DAILY PO Last administered on 11/01/21at 08:05; Start 10/28/21 at 09:00; Stop 11/01/21 at 13:15; Status DC Insulin Human Lispro (HumaLOG) 0-7 UNITS TIDWMEALS SQ Last administered on 11/01/21at 12:09; Start 10/27/21 at 18:15; Stop 11/01/21 at 13:15; Status DC Dextrose (Dextrose 50%-Water Syringe) 12.5 gm PRN Q15MIN PRN IV SEE COMMENTS; Start 10/27/21 at 18:15; Stop 10/29/21 at 12:07; Status DC Dextrose (Iv Dextrose 5%) 250 ml PRN Q15MIN PRN IV SEE COMMENTS; Start 10/27/21 at 18:15; Stop 10/28/21 at 12:30; Status DC Ondansetron HCl (Zofran) 4 mg PRN Q6HRS PRN IVP NAUSEA/VOMITING 1ST CHOICE Last administered on 10/28/21at 20:37; Start 10/28/21 at 00:00; Stop 11/01/21 at 13:15; Status DC Acetaminophen (Tylenol) 650 mg PRN Q4HRS PRN PO MILD PAIN / TEMP > 100.3'F Last administered on 10/28/21at 17:04; Start 10/28/21 at 00:00; Stop 11/01/21 at 13:15; Status DC Insulin Glargine (Lantus Syringe) 30 unit QHS SQ Last administered on 10/29/21at 21:43; Start 10/28/21 at 21:00; Stop 10/30/21 at 09:21; Status DC Insulin Human Lispro (HumaLOG) 12 units TIDWMEALS SQ Last administered on 10/29/21at 17:46; Start 10/28/21 at 12:00; Stop 10/30/21 at 11:38; Status DC Dextrose (Dextrose 50%-Water Syringe) 12.5 gm PRN Q15MIN PRN IV SEE COMMENTS; Start 10/28/21 at 12:00; Stop 11/01/21 at 13:15; Status DC Dextrose (Iv Dextrose 5%) 250 ml PRN Q15MIN PRN IV SEE COMMENTS; Start 10/28/21 at 12:00; Stop 11/01/21 at 13:15; Status DC Guaifenesin (Robitussin Dm) 10 ml PRN Q6HRS PRN PO COUGH; Start 10/28/21 at 12:00; Stop 10/28/21 at 12:03; Status DC Azithromycin (Zithromax) 500 mg 1X ONCE PO Last administered on 10/28/21at 13:10; Start 10/28/21 at 12:00; Stop 10/28/21 at 12:01; Status DC Azithromycin (Zithromax) 250 mg DAILY PO Last administered on 11/01/21at 08:05; Start 10/29/21 at 09:00; Stop 11/01/21 at 09:01; Status DC Benzonatate (Tessalon Perle) 100 mg [id number] PO Last administered on 11/01/21at 08:05; Start 10/28/21 at 13:00; Stop 11/01/21 at 13:15; Status DC Aspirin (Ecotrin) 81 mg [id number] PO Last administered on 11/01/21at 08:05; Start 10/29/21 at 08:00; Stop 11/01/21 at 13:15; Status DC Enoxaparin Sodium (Lovenox 100mg Syringe) 90 mg 1X ONCE SQ Last administered on 10/28/21at 15:22; Start 10/28/21 at 15:15; Stop 10/28/21 at 15:16; Status DC Polyethylene Glycol (miraLAX PACKET) 17 gm Q6HRS PO Last administered on 10/30/21at 17:29; Start 10/29/21 at 12:00; Stop 10/30/21 at 23:32; Status DC Docusate Sodium (Colace) 100 mg PRN BID PRN PO HARD STOOLS Last administered on 10/29/21at 21:41; Start 10/29/21 at 11:15; Stop 11/01/21 at 13:15; Status DC Lactobacillus Rhamnosus (Culturelle) 1 cap BID PO ; Start 10/29/21 at 12:00; Status Cancel Enoxaparin Sodium (Lovenox 100mg Syringe) 90 mg 1X ONCE SQ Last administered on 10/29/21at 17:35; Start 10/29/21 at 15:30; Stop 10/29/21 at 15:31; Status DC Calcium Carbonate/ Glycine (Tums) 1,000 mg PRN Q4HRS PRN PO INDIGESTION Last administered on 10/29/21at 21:41; Start 10/29/21 at 21:15; Stop 11/01/21 at 13:15; Status DC Famotidine (Pepcid) 20 mg QHS PO Last administered on 10/31/21at 21:06; Start 10/30/21 at 21:00; Stop 11/01/21 at 13:15; Status DC Famotidine (Pepcid Vial) 20 mg 1X ONCE IVP Last administered on 10/29/21at 21:15; Start 10/29/21 at 21:15; Stop 10/29/21 at 21:16; Status DC Regadenoson (Lexiscan) 0.4 mg 1X ONCE IV Last administered on 10/30/21at 11:00; Start 10/30/21 at 09:00; Stop 10/30/21 at 09:01; Status DC Insulin Glargine (Lantus Syringe) 20 unit BID SQ Last administered on 11/01/21at 08:46; Start 10/30/21 at 09:30; Stop 11/01/21 at 13:15; Status DC Insulin Human Lispro (HumaLOG) 5 units TIDWMEALS SQ Last administered on 11/01/21at 12:09; Start 10/30/21 at 12:00; Stop 11/01/21 at 13:16; Status DC Insulin Human Lispro (HumaLOG) 20 units 1X ONCE SQ Last administered on 10/30/21at 17:15; Start 10/30/21 at 17:15; Stop 10/30/21 at 17:20; Status DC Vitamin B Complex (Folbic Tablet) 1 tab DAILY PO Last administered on 11/01/21at 08:05; Start 10/31/21 at 10:30; Stop 11/01/21 at 13:16; Status DC Active Scripts Active Percocet 5-325 Mg Tablet (Oxycodone/Acetaminophen) 1 Each Tablet 1 Tab PO PRN Q6HRS PRN 3 Days Prednisone 20 Mg Tablet 1 Tab PO DAILY 5 Days Percocet 5-325 Mg Tablet (Oxycodone/Acetaminophen) 1 Each Tablet 1 Tab PO PRN Q6HRS PRN pain Reported Fludrocortisone Acetate 0.1 Mg Tablet 1 Tab PO DAILY Lexapro (Escitalopram Oxalate) 20 Mg Tablet 1 Tab PO DAILY Levothyroxine Sodium 125 Mcg Tablet 1 Tab PO DAILY Gabapentin (Gabapentin) 300 Mg Capsule 300 Mg PO HS Trazodone Hcl 100 Mg Tablet 1 Tab PO QHS Calcitriol 0.25 Mcg Capsule 1 Cap PO DAILY Humulin 70-30 Vial (Hum Insulin Nph/Reg Insulin Hm) 100 Unit/1 Ml Vial 62 Unit SQ DAILY Lipitor (Atorvastatin Calcium) 40 Mg Tablet 1 Tab PO DAILY Fenofibrate (Fenofibrate Nanocrystallized) 145 Mg Tablet 1 Tab PO DAILY Vitals/I & O Vital Sign - Last 24 Hours 10/31/21 10/31/21 10/31/21 11/01/21 18:53 19:28 23:00 03:00 Temp 97.9 98.1 98.1 97.9 98.1 98.1 Pulse 83 81 80 Resp 18 18 18 B/P (MAP) 148/62 (90) 141/55 (83) 121/49 (73) Pulse Ox 98 98 100 97 O2 Delivery Nasal Cannula Nasal Cannula Nasal Cannula Nasal Cannula O2 Flow Rate 1.0 1.0 1.0 1.0 11/01/21 11/01/21 11/01/21 11/01/21 07:00 08:00 08:06 08:37 Temp 97.7 97.7 97.7 97.7 Pulse 71 71 Resp 20 20 B/P (MAP) 113/47 (69) 113/47 (69) Pulse Ox 98 98 94 O2 Delivery Nasal Cannula Nasal Cannula Nasal Cannula Room Air O2 Flow Rate 1.0 1.0 1.0 11/01/21 11:01 Temp 97.9 97.9 Pulse 85 Resp 20 B/P (MAP) 113/71 (85) Pulse Ox 97 O2 Delivery Room Air Intake and Output 10/31/21 10/31/21 11/01/21 15:00 23:00 07:00 Intake Total 400 ml 500 ml Output Total 650 ml Balance 400 ml -150 ml Justifications for Admission Other Justification MARILU HADLEY MD Nov 01, 2021 15:42
== END 2021-11-01 12:58 | DRG 189 ==
LOC: ER 05:02 → ED HOLD 08:10 → 5 NORTH 08:23
PROVIDERS: ADMIT Internal Medicine; ATTEND Internal Medicine
DX: J96.01 Acute respiratory failure with hypoxia (principal); I21.4 Non-ST elevation (NSTEMI) myocardial infarction; J44.1 Chronic obstructive pulmonary disease with (acute) exacerbation; N18.4 Chronic kidney disease, stage 4 (severe); E11.22 Type 2 diabetes mellitus with diabetic chronic kidney disease; E11.65 Type 2 diabetes mellitus with hyperglycemia; E78.5 Hyperlipidemia, unspecified; E89.0 Postprocedural hypothyroidism; I12.9 Hypertensive chronic kidney disease with stage 1 through stage 4 chronic kidney disease, or unspecified chronic kidney disease; I25.10 Atherosclerotic heart disease of native coronary artery without angina pectoris; I25.2 Old myocardial infarction; K59.00 Constipation, unspecified; G47.33 Obstructive sleep apnea (adult) (pediatric); M19.90 Unspecified osteoarthritis, unspecified site; Z20.822 Contact with and (suspected) exposure to COVID-19; D64.9 Anemia, unspecified; Z83.3 Family history of diabetes mellitus; Z85.6 Personal history of leukemia; Z90.710 Acquired absence of both cervix and uterus; Z98.51 Tubal ligation status; Z88.5 Allergy status to narcotic agent; Z88.0 Allergy status to penicillin
CPT/HCPCS: 36415; 36600; 71045; 78452; 80048; 80053; 80061; 81001; 82607; 82728; 82805; 82962; 83605; 83880; 84145; 84443; 84484; 85007; 85025; 85610; 85730; 87040; 87426; 87428; 93005; 93017; 93306; 94640; 94760; 96374; 96375; A9500; J0456; J0696; J1650; J1815; J2270; J2405; J2785; J2920; J2930; J3490; J7040; J7050; U0003; 97110-GP; 97116-GP; 97530-GO; 97535-GO; 99291-25; C8929; G0378; J7030; J7613